=== PATIENT | female | born 1940 | race Caucasian/White ===

== ENCOUNTER 2018-10-01 09:27 | Inpatient (IN) ==
[2018-10-01] MEDS ORDERED: D50W SYRINGE IV ONE (10:00)
[2018-10-01] MEDS ORDERED: NS 1,000 ML IV ONE (10:07)
[2018-10-01 10:29] LABS: BASO# 0.01 X1000 (0.0-0.2); BASO% 0.1 % (0.0-0.8); EOS% 27.4 % (0.0-10.0); HEMATOCRIT 37.7 % (37.0-47.0); IMM GRAN# 0.07 X1000 (0.0-0.04); IMM GRAN% 0.8 % (0.0-0.5); LYMPH# 1.37 X1000 (1.2-3.4); MCH 30.3 PG (27-31); MCHC 31.8 g/dL (33-37); MCV 95.2 FL (81-99); MONO# 0.72 X1000 (0.11-0.59); MONO% 7.9 % (1.7-9.3); NEUT# 4.46 X1000 (1.4-6.5); NEUT% 48.8 % (42.2-75.2); PLT 167 X1000 (130-400); RBC 3.96 XMIL (4.2-5.4); RDW 14.6 % (11.5-14.5); WBC 9.13 X1000 (4.8-10.8)
[2018-10-01 10:37] LABS: ALB/GLOB RATIO 1.5; ALBUMIN 3.7 g/dL (3.5-5.0); CALCIUM 8.5 mg/dL (8.8-10.2); CREATININE 4.2 mg/dL (0.5-0.9); POTASSIUM 5.6 mmol/L (3.5-5.1); TOTAL BILIRUBIN 0.73 mg/dL (0.20-1.00); TOTAL PROTEIN 6.2 g/dL (6.3-8.3)
--- NOTE | 2018-10-01 10:42 | EKG Report ---
Test Performed on : 10/01/2018 09:54:35 AM Test Reason : dizziness Blood Pressure : / mmHG Vent. Rate : 089 BPM Atrial Rate : 089 BPM P-R Int : 150 ms QRS Dur : 072 ms QT Int : 348 ms P-R-T Axes : 019 -13 -05 degrees QTc Int : 423 ms Sinus rhythm. with premature supraventricular complexes. Minimal voltage criteria for LVH, may be normal variant Inferior infarct , age undetermined Cannot rule out Anterior infarct , age undetermined Abnormal ECG When compared with ECG of 24-JUL-2018 09:19, premature supraventricular complexes. are now present Inferior infarct is now present T wave inversion now evident in Inferior leads Unconfirmed Result
[2018-10-01 10:50] LABS: BANDS 6 % (0-1); BASO 2 % (0-1); EOS 18 % (1-10); LYMPHS 10 % (21-51); MONO 8 % (1-9); NRBC 1 % (0-0); SEGS 56 % (42-75)
[2018-10-01] MEDS ORDERED: VELTASSA PO ONE (11:11)
--- NOTE | 2018-10-01 11:20 | Diag Imaging Result Doc PS360 ---
EXAM: CHEST-1 VIEW HISTORY: sob TECHNIQUE: Chest single view COMPARISON: 10/10/2015 FINDINGS: Poor inspiratory effort. No change in the left-sided portacatheter. No pneumothorax. No cardiomegaly. Mild increased interstitial markings in the lung bases. No pleural effusions identified. There is right hilar prominence. IMPRESSION: Mild vascular distention. There may be underlying basilar pneumonia as well. Electronically signed by Philip Blair 10/01/2018 11:18 AM
[2018-10-01 11:31] LABS: ALLEN TEST YES; BE -5.2 mmoll (-3.0-3.0); BLOOD TYPE ARTERIAL; HCO3-(ACT) 20.8 mmoll (20.0-26.0); O2(CT) 14.7 mL/dL (15.0-23.0); O2HB 94.6 % (95.0-99.0); PO2(98.6) 83 mmHg (60-100); SAMPLE BLOOD; SAO2 96.4 % (95.0-100.0); pH(98.6) 7.23 (7.35-7.45)
[2018-10-01 11:33] LABS: MODALITY CANNULA; PCO2(98.6) 54 mmHg (35-45)
--- NOTE | 2018-10-01 13:02 | HISTORY AND PHYSICAL ---
HISTORY OF PRESENT ILLNESS: This is a 78-year-old. Apparently yesterday her said he had a hard time getting her to wake up. She was nauseated and had not eaten much. When she arrived here in the emergency room, her sugar was in the 40s, but also noted renal function had deteriorated with creatinine above 4. She denies chest pain or fever or chills. In general, she had not felt real good with some nausea, and had not eaten or drank much. Not sure about what medication she took. Had noted any abdominal pain or change in bowels other than constipation. No gross hematuria or dysuria. No pleuritic pain or cough. PAST MEDICAL HISTORY: 1. Hypertension. 2. Diabetes mellitus type 2. 3. Gout. 4. Osteoarthritis. 5. Hypothyroidism. 6. She had inguinal left node biopsy back in July of this year. SURGICAL HISTORY: 1. Status post appendectomy. 2. Cholecystectomy and left breast biopsy in the past. SOCIAL HISTORY: She is . Negative for alcohol or tobacco. FAMILY HISTORY: She states contributory to heart disease or lung disease or renal disease. REVIEW OF SYSTEMS: General: She has not noticed any weight gain or loss. No fever or chills. HEENT: No change in visual or hearing acuity. No trouble with swallowing. Respiratory: No increased work of breathing or dyspnea. Cardiovascular: No chest pain or tachy palpitation. GI: Constipation. : She has some frequency of urine. Musculoskeletal/Neurologic: No new focal complaints. She has some back pain. Wears a back brace. Endocrinologic/Hematologic: No significant history. PHYSICAL EXAMINATION: GENERAL: Today in the emergency room, she is awake at the present time and alert, no nausea, no pain. VITAL SIGNS: Temperature 98.1 degrees, pulse 85, respirations 18, blood pressure 136/57, O2 saturation was 95%. Height 5 feet 4 inches, weight 220 pounds. HEENT: Pupils are equal and round. CVP less than 6 cm from right atrium. LUNGS: Clear in all lung carmona. CARDIOVASCULAR EXAM: Regular rhythm and rate without murmur or S3. ABDOMEN: Soft, nontender, nondistended. SKIN: Warm and dry. LABS AND X-RAYS: White count 9130, hematocrit is 37, platelet count 167,000. Sodium 139, potassium 5.6, chloride 100. BUN 46, creatinine 4.2. Blood sugar 43, calcium 8.5. AST was 1000, ALT was 2758. Blood gas with pH 7.23, pCO2 54, PO2 was 83. Her chest x-ray report mild vascular distention; there may be underlying basilar pneumonia, could not be sure. ASSESSMENT AND PLAN: 1. Hypoglycemia. We will give her some sugar. I think this is from her nausea and not eating or drinking. I will put her on sliding scale at home for her blood sugars. She takes glipizide 5 mg twice daily and metformin 1000 mg twice daily; so, we will hold both of these at this time. 2. Acute kidney injury, possibly on top of chronic kidney disease. We will give her some fluids, watch her volume status and see if her renal function does not improve. I hope most of this is prerenal. 3. Hypercholesterolemia. Continue her simvastatin 20 mg a day. 4. History of deep vein thrombosis in the past. She takes Coumadin 1 mg a day. We will check a pro time. 5. Osteoarthritis. She is on diclofenac, aware, 75 mg twice daily. 6. Elevated transaminases. We will follow these. I will check a hepatitis profile. 7. Dry eyes. She takes Restasis; we will continue that. 8. Peripheral neuropathy, which I suspect is from diabetes since she is on some Neurontin, and she takes Elavil as well. 9. History of gouty arthritis. She is on allopurinol 300 mg daily. We will recheck her thyroid and uric acid. cc: Zach Smith MD
[2018-10-01 13:47] LABS: URINE SOURCE CATH
[2018-10-01] MEDS ORDERED: TYLENOL PO PRN (14:16)
[2018-10-01 14:17] LABS: BILIRUBIN URINE NEGATIVE (NEGATIVE); BLOOD URINE MODERATE (NEGATIVE); COLOR ORANGE; GLUCOSE URINE NEGATIVE (NEGATIVE); KETONE URINE NEGATIVE (NEGATIVE); LEUKOCYTES URINE LARGE (NEGATIVE); NITRITE URINE NEGATIVE (NEGATIVE); PROTEIN URINE 300 mg/dL (NEGATIVE); SP GRAVITY URINE 1.013; TURBIDITY URINE TURBID (CLEAR); UR EPITHELIAL CELLS >10 /HPF (<10); URINE BACTERIA 4+ /HPF; URINE RBC TNTC /HPF (<10); URINE WBC TNTC /HPF (<10); UROBILINOGEN URINE NORMAL (NORMAL)
[2018-10-01 14:28] LABS: URINE CASTS GRANULAR PRESENT; URINE CRYSTALS NONE SEEN; URINE SMALL ROUND CELLS NONE SEEN; URINE YEAST NONE SEEN
--- NOTE | 2018-10-01 15:01 | EKG Report ---
Test Performed on : 10/01/2018 2:23:02 PM Test Reason : chest pain Blood Pressure : / mmHG Vent. Rate : 083 BPM Atrial Rate : 083 BPM P-R Int : 154 ms QRS Dur : 080 ms QT Int : 344 ms P-R-T Axes : 019 -11 009 degrees QTc Int : 404 ms Normal sinus rhythm. Possible Anterior infarct (cited on or before 01-OCT-2018) Abnormal ECG When compared with ECG of 01-OCT-2018 09:54, (Unconfirmed) premature supraventricular complexes. are no longer present Confirmed by Anirudh PHILLIPS, Mike Ellison ([id number]) on 10/02/2018 8:21:07 AM
[2018-10-01 15:06] LABS: INR 0.99; PROTIME 13.9 Seconds (11.0-16.0)
[2018-10-01] MEDS: NS 1,000 ML IV SCH (15:10)
[2018-10-01] MEDS: REQUIP PO SCH ×2 (16:57→21:00)
[2018-10-01] MEDS: PERCOCET-10 PO SCH ×3 (16:57→17:01)
[2018-10-01 19:44] LABS: CALCIUM 7.8 mg/dL (8.8-10.2); CREATININE 4.3 mg/dL (0.5-0.9); POTASSIUM 5.9 mmol/L (3.5-5.1)
[2018-10-01] MEDS: DITROPAN XL PO SCH (20:56)
[2018-10-01] MEDS: ELAVIL PO SCH (20:56)
[2018-10-01] MEDS: NEURONTIN PO SCH (20:57)
[2018-10-02] MEDS: RESTASIS 0.05% OPH DROPS BOTH EYES SCH ×3 (05:50→21:40)
[2018-10-02] MEDS: NS 1,000 ML IV SCH ×2 (06:30→06:31)
[2018-10-02] MEDS: D50W SYRINGE IV ONE (06:30)
[2018-10-02 07:22] LABS: BASO# 0.01 X1000 (0.0-0.2); BASO% 0.1 % (0.0-0.8); EOS# 1.53 X1000 (0.0-0.7); EOS% 18.6 % (0.0-10.0); HEMATOCRIT 34.4 % (37.0-47.0); HEMOGLOBIN 10.6 g/dL (12.0-16.0); IMM GRAN# 0.05 X1000 (0.0-0.04); IMM GRAN% 0.6 % (0.0-0.5); LYMPH# 0.46 X1000 (1.2-3.4); LYMPH% 5.6 % (20.5-51.1); MCHC 30.8 g/dL (33-37); MCV 97.5 FL (81-99); MONO# 0.59 X1000 (0.11-0.59); MONO% 7.2 % (1.7-9.3); MPV 10.5 FL (7.4-10.4); NEUT# 5.58 X1000 (1.4-6.5); NEUT% 67.9 % (42.2-75.2); PLT 141 X1000 (130-400); RBC 3.53 XMIL (4.2-5.4); RDW 15.1 % (11.5-14.5); WBC 8.22 X1000 (4.8-10.8)
[2018-10-02 07:31] LABS: INR 0.93; PROTIME 13.2 Seconds (11.0-16.0)
[2018-10-02 07:58] LABS: ALB/GLOB RATIO 1.5; ALBUMIN 3.1 g/dL (3.5-5.0); CALCIUM 7.5 mg/dL (8.8-10.2); CREATININE 5.3 mg/dL (0.5-0.9); MAGNESIUM 1.6 mg/dL (1.5-2.7); TOTAL BILIRUBIN 0.39 mg/dL (0.20-1.00); TOTAL PROTEIN 5.2 g/dL (6.3-8.3)
[2018-10-02 08:02] LABS: POTASSIUM 5.9 mmol/L (3.5-5.1)
--- NOTE | 2018-10-02 08:22 | Diag Imaging Result Doc PS360 ---
EXAM: CHEST-2 VIEWS HISTORY: pulmonary venous htn TECHNIQUE: Chest two views 10/01/2018 COMPARISON: None. FINDINGS: Poor inspiratory effort. Heart is borderline mildly prominent. There is mild right hilar prominence. There are small pleural effusions. No change in the left-sided portacatheter. Prominence IMPRESSION: Small pleural effusions with right hilar prominence. Hilar prominence could be due to the vasculature or adenopathy. Electronically signed by Philip Blair 10/02/2018 8:20 AM
[2018-10-02 09:00] LABS: T4 3.76 ug/dL (4.60-12.00); TSH 0.94 uIUmL (0.27-4.20)
[2018-10-02] MEDS ORDERED: ZYLOPRIM PO SCH (09:00)
[2018-10-02] MEDS ORDERED: COUMADIN PO SCH (09:00)
[2018-10-02] MEDS: PERCOCET-10 PO SCH ×3 (09:17→23:25)
[2018-10-02] MEDS: NORVASC PO SCH (09:17)
[2018-10-02] MEDS: SYNTHROID PO SCH (09:18)
[2018-10-02] MEDS: REQUIP PO SCH ×2 (09:18→21:39)
[2018-10-02] MEDS: DITROPAN XL PO SCH ×2 (09:18→21:39)
[2018-10-02] MEDS: NEURONTIN PO SCH (09:19)
--- NOTE | 2018-10-02 11:31 | ECHO REPORT ---
ORDER DATE: 10/01/2018 INDICATION: Hypoglycemia. Acute kidney injury. Diabetes. Hypertension. FINDINGS: 1. Right atrium is mildly enlarged at 4.1 cm. 2. Mild tricuspid regurgitation. The RV systolic pressure is 76 suggesting pulmonary hypertension. 3. Normal RV size and systolic function. 4. Trace pulmonic insufficiency. 5. Mild left atrial enlargement with a dimension of 4.3 cm. 6. No mitral valve prolapse. Mild mitral regurgitation. No evidence of mitral stenosis. 7. Normal LV size, end-diastolic dimension of 4.7. Mild left ventricular hypertrophy with a posterior and interventricular septal wall thickness 1.2 cm each. Normal LV systolic function. Estimated EF of 65%. 8. Aortic valve is calcified with restriction in motion consistent with moderate aortic stenosis. The peak gradient is 51, mean of 30, valve area by continuity equation is 1.2 cm2. There is mild aortic insufficiency. 9. Aorta appears normal in visualized segments. 10. No pericardial effusion seen. cc: MD Zach New MD
[2018-10-02] MEDS ORDERED: NS 1,000 ML IV SCH (13:24)
--- NOTE | 2018-10-02 13:43 | PROGRESS NOTE ---
DATE: 10/02/2018 SUBJECTIVE: Ms. Oakes feels better but she had a rough night. Blood sugars still going to run a little low. She remains afebrile. Her daughter was there at the bedside. OBJECTIVE: Vital signs: She is alert and oriented x3, remains afebrile, temperature 97.3 degrees, pulse 68, respirations 16, blood pressure 125/54. HEENT: Pupils are equal round lungs are clear in all lung carmona. Cardiovascular: Regular rhythm and rate without murmur or S3. Abdomen: Soft Skin: Warm and dry urine. Genitourinary: Output was 1700 mL. IMAGING: Chest x-ray this morning, small pleural effusions, right hilar prominence, hilar prominence could be due to vasculature adenopathy echocardiogram with Doppler. Right atrium mildly enlarged. Mild tricuspid regurgitation. RV pressure around 76 mmHg suggesting pulmonary hypertension. Normal RV size and systolic function. Trace pulmonic insufficiency. Mild left atrial enlargement dimension is 4.3 cm. No mitral prolapse. Mild mitral regurgitation. Normal LV size. Dimensions 4.7 cm, mild left ventricular hypertrophy with posterior and intraventricular septal wall thickness. Normal LV function. Estimated ejection fraction 65%. Aortic valve was calcified. There is mild aortic insufficiency. There is moderate aortic stenosis. Aorta appears normal in visualized segments. No pericardial effusion. Her creatinine is 5.3, which is gone up. Urine output has gone down. I am going to ask Dr. Monsalve to get involved and try and increase her fluid. She should be able to handle fluid. Fine. ASSESSMENT AND PLAN: 1. Hypoglycemia. Had stopped the glyburide and metformin. Blood sugars seem to be coming up. 2. Acute kidney injuries. May be acute on chronic, but hopefully most of this is prerenal. I will continue to follow electrolytes and creatinine. We will go up on the normal saline, give her 125 mL an hour. 3. Elevation in transaminases. AST 276 and ALT is 17 and 13, alkaline phosphatase is 264. I will get an ultrasound of her abdomen. 4. She has been treated with lymphoma. Originally I think had in 2004 and then 2006 relapse. I will ask Dr. Maloney to help follow. Concerned about elevation of transaminase. Concerned about her renal function. We will get an ultrasound of the abdomen and ultrasound of the kidneys and collection system. 5. Appears to have some pulmonary hypertension and maybe moderate aortic stenosis, but good left ventricular function. cc: Zach Smith MD
--- NOTE | 2018-10-02 15:18 | Diag Imaging Result Doc PS360 ---
EXAM: US ABDOMEN-COMPLETE INDICATION: look at liver and kidneys COMPARISON: None. FINDINGS: There has been a prior cholecystectomy. The common bile duct is dilated measuring up to 9 mm in diameter. This is assumed to be due to postcholecystectomy status and the age of the patient. The liver appears grossly normal in size and echotexture. No discrete hepatic mass is identified. Portal venous flow is hepatopetal. The pancreas is obscured by bowel gas. The aorta and IVC are grossly unremarkable. The spleen is obscured. There is a small 1.4 cm simple appearing left renal cyst. The kidneys are normal in echotexture, otherwise. No solid renal mass or hydronephrosis is identified. The right kidney measures 13.4 cm and the left kidney measures 11.9 cm in the greatest longitudinal axes. Both renal cortices measure up to 1.2 cm in thickness. Urinary bladder is not identified and is probably completely nondistended. IMPRESSION: 1.Somewhat limited study due to bowel gas. 2.Small left renal cyst. Unremarkable kidneys, otherwise. 3.The liver is grossly unremarkable. Electronically signed by Seth Hernandez 10/02/2018 3:16 PM
[2018-10-02] MEDS ORDERED: D50W SYRINGE IV ONE (15:54)
[2018-10-02] MEDS: D5 NS 1,000 ML IV SCH (16:10)
--- NOTE | 2018-10-02 18:48 | NEPHROLOGY CONSULTATION ---
DATE: 10/02/2018 REASON FOR CONSULTATION: Acute kidney injury. HISTORY OF PRESENT ILLNESS: Ms. Oakes is a 78-year-old white female with a history of diabetes, hypertension, non-Hodgkin's lymphoma, osteoarthritis, and hypothyroidism. She has been treated by Dr. Ginna Maloney, but she is not aware of the regimen she has received for her non-Hodgkin's lymphoma. She does have a port in the left chest. She was in her usual state of health until this weekend when she began having intense nausea and vomiting. No diarrhea, no chills, fever, sweats, night sweats. She does have a minor cough that is causing some pain in the midsternum, but no sputum production. No chills, fever, sweats, night sweats, etc. She did continue to take her home medications through the weekend. On Sunday morning, she was lethargic and difficult to arouse and essentially slept all day long. She did not take any of her medicines that day. On Sunday morning, she remained abnormal and so her packaged her up and brought her to the emergency room. Her initial vital signs found a blood pressure of 147/71, heart rate 91, respirations 18. She was evaluated and found to have acute kidney injury with creatinine of 4.2, BUN 46, potassium of 5.6, and anion gap of 23. She had evidence of acute liver injury with AST 1088 and ALT 2758. She was admitted to the hospital and her outpatient medications were pared down. She is continuing to receive her gabapentin at 800 mg b.i.d. as well as her Norvasc and amitriptyline, allopurinol, levothyroxine, methocarbamol, oxybutynin, oxycodone, ropinirole, and warfarin. Her other medications were withheld, including her metformin, simvastatin, glipizide, enalapril, diclofenac, and allopurinol. Despite these changes and aggressive IV fluid resuscitation, she has had minimal urine output and it has been dark in color. She has had ongoing problems with hypoglycemia, and she is eating crackers and peanut butter. No further vomiting. She has not developed shortness of breath. She has been too weak to stand up. PAST MEDICAL HISTORY: As above. HOME MEDICATIONS: As listed above. ALLERGIES: None. SOCIAL HISTORY: She is and lives with her . No alcohol or tobacco. FAMILY HISTORY: Otherwise noncontributory. REVIEW OF SYSTEMS: Otherwise noncontributory. Nobody else is sick at home. OBJECTIVE: Vital Signs: Blood pressure 156/76, heart rate 77, respirations 16, afebrile. General: No acute distress. Skin: Warm and dry. Conjunctivae are pink. Pupils are equal. Oropharynx is clear. Tongue is somewhat smooth. Dentition normal. Neck: Supple. Trachea is midline. Neck veins are not visible. No obvious hepatojugular reflux. Heart: Regular with a systolic murmur at the right upper sternal border, a crescendo/decrescendo course, and radiates minimally to the carotids. Lungs: Equal breath sounds. No crackles or wheezes. Abdomen: Obese soft, nontender. Bowel sounds present. Extremities: Trace edema. No clubbing or cyanosis. Neurologic: Nonfocal except for generalized weakness. IMPRESSION AND PLAN: Acute kidney injury. Acute tubular necrosis is statistically most likely. She has been treated appropriately with intravenous fluids and her medications have been appropriately adjusted. She does have modest hyperkalemia and metabolic acidosis on presentation, but these are not at a level that require treatment at this time. BUN was 52 this morning. We will continue her intravenous fluids, and recheck her urine as well as urine electrolytes, urine protein, etc., repeat abdominal imaging with CT abdomen and pelvis without contrast given her history of lymphoma. I counseled the patient and family of the likely cause of her acute kidney injury (prerenal azotemia with overlying acute tubular necrosis). Overall, likely a good prognosis, though some significant risk for requiring dialysis. We will re-evaluate on a daily basis. cc: MD Zach Bergeron MD
[2018-10-02] MEDS ORDERED: NEURONTIN PO SCH ×2 (21:00)
[2018-10-02] MEDS: ELAVIL PO SCH (21:39)
[2018-10-02] MEDS: ZOFRAN IV PRN (21:41)
--- NOTE | 2018-10-02 21:44 | Diag Imaging Result Doc PS360 ---
EXAM: CT ABDOMEN/PELVIS W/O CONTRAST - 10/02/2018 HISTORY: decreased renal function. History of NHL TECHNIQUE: CT abdomen/pelvis without contrast. No contrast administered per request the referring provider, apparently due to decreased renal function. COMPARISON: Limited images from CT biopsy of abdomen dated 02/02/2015 FINDINGS: There is infiltrate or atelectasis at the posterior left lung base. There is a small left pleural effusion. There is an apparent 13 x 9 mm stone at the distal left renal pelvis. This appears grossly stable compared to prior. There is no substantial hydronephrosis. There is apparent bilateral perinephric scarring. There is retroperitoneal adenopathy. This appears decreased compared to that which was present at the time of the prior biopsy. There are atherosclerotic calcifications noted. There are lumbar spine degenerative changes noted. There are no substantial abnormalities of the liver, spleen (other than calcified granulomas from old granulomatous disease) adrenal glands, or pancreas identified. The gallbladder surgically absent. There are some distention of the stomach and duodenum. The remainder of the small bowel does not appear substantially distended. There is a moderate amount retained fecal debris in the colon suggesting constipation. There is diverticulosis at the sigmoid colon, which is noted to be tortuous. There is no indication of diverticulitis. There is no free air, substantial free fluid, or abscess identified. IMPRESSION: Infiltrate or atelectasis at posterior left lung base. Small left pleural effusion. Apparent chronic 12 x 9 mm stone in distal left renal pelvis. No substantial hydronephrosis. Apparent bilateral perinephric scarring. Retroperitoneal adenopathy, which is apparently decreased compared to 02/02/2015 CT biopsy. There are atherosclerotic calcifications in lumbar spine degenerative changes noted. Some distention of stomach and duodenum. Constipation. Uncomplicated diverticulosis at sigmoid colon. This exam was performed using automated exposure control, adjustment of mA or kV according to patient size, and/or use of iterative reconstruction technique. Electronically signed by Ravi Rosas 10/02/2018 9:41 PM
[2018-10-03 00:35] LABS: URINE SOURCE CLEAN CATCH
[2018-10-03 00:48] LABS: BILIRUBIN URINE NEGATIVE (NEGATIVE); BLOOD URINE MODERATE (NEGATIVE); COLOR YELLOW; GLUCOSE URINE NEGATIVE (NEGATIVE); KETONE URINE NEGATIVE (NEGATIVE); LEUKOCYTES URINE LARGE (NEGATIVE); NITRITE URINE NEGATIVE (NEGATIVE); PROTEIN URINE 200 mg/dL (NEGATIVE); SP GRAVITY URINE 1.003; TURBIDITY URINE TURBID (CLEAR); UR EPITHELIAL CELLS >10 /HPF (<10); URINE BACTERIA 3+ /HPF; URINE RBC TNTC /HPF (<10); URINE WBC TNTC /HPF (<10); UROBILINOGEN URINE NORMAL (NORMAL)
[2018-10-03 01:02] LABS: UR PROT RANDOM 151.3 mg/dL
[2018-10-03] MEDS: D5 NS 1,000 ML IV SCH (01:21)
[2018-10-03] MEDS ORDERED: D50W SYRINGE IV ONE ×3 (01:43→07:01)
[2018-10-03] MEDS: D50W SYRINGE IV ONE (02:04)
[2018-10-03] MEDS ORDERED: DUONEB (A & A) INH ONE (03:37)
[2018-10-03] MEDS ORDERED: D5 NS 1,000 ML IV SCH (03:44)
[2018-10-03] MEDS: LEVAQUIN 250 MG/D5W 250 MG/50 ML IVPB IV SCH (04:04)
[2018-10-03 04:57] LABS: MCH 30.3 PG (27-31); MCHC 31.4 g/dL (33-37); MCV 96.4 FL (81-99); MPV 11.4 FL (7.4-10.4); RBC 3.63 XMIL (4.2-5.4); RDW 15.1 % (11.5-14.5); WBC 12.4 X1000 (4.8-10.8)
[2018-10-03 05:23] LABS: ALBUMIN 3.4 g/dL (3.5-5.0); CALCIUM 7.1 mg/dL (8.8-10.2); PHOSPHORUS 8.2 mg/dL (2.7-4.5)
[2018-10-03 05:24] LABS: POTASSIUM 6.4 mmol/L (3.5-5.1)
[2018-10-03 05:56] LABS: URINE SOURCE CLEAN CATCH
[2018-10-03 06:07] LABS: BILIRUBIN URINE NEGATIVE (NEGATIVE); BLOOD URINE MODERATE (NEGATIVE); COLOR YELLOW; GLUCOSE URINE NEGATIVE (NEGATIVE); KETONE URINE NEGATIVE (NEGATIVE); LEUKOCYTES URINE LARGE (NEGATIVE); NITRITE URINE NEGATIVE (NEGATIVE); PH URINE 5.5; PROTEIN URINE 100 mg/dL (NEGATIVE); SP GRAVITY URINE 1.001; TURBIDITY URINE HAZY (CLEAR); UROBILINOGEN URINE NORMAL (NORMAL)
[2018-10-03 06:09] LABS: UR EPITHELIAL CELLS <10 /HPF (<10); URINE BACTERIA 3+ /HPF; URINE RBC <10 /HPF (<10); URINE WBC TNTC /HPF (<10)
[2018-10-03] MEDS: D10W 1,000 ML IV SCH (06:37)
[2018-10-03] MEDS: LOKELMA POWDER PACKET PO SCH ×4 (06:44→19:30)
--- NOTE | 2018-10-03 08:04 | EKG Report ---
Test Performed on : 10/03/2018 06:43:28 AM Test Reason : hyperkalemia Blood Pressure : / mmHG Vent. Rate : 082 BPM Atrial Rate : 082 BPM P-R Int : 156 ms QRS Dur : 080 ms QT Int : 350 ms P-R-T Axes : 024 -07 015 degrees QTc Int : 408 ms Normal sinus rhythm. Normal ECG When compared with ECG of 01-OCT-2018 14:23, No significant change was found Confirmed by Anirudh PHILLIPS, Mike Ellison ([id number]) on 10/04/2018 9:05:21 AM
[2018-10-03] MEDS ORDERED: XYLOCAINE 1%/EPI 1:100,000 ONE (09:53)
[2018-10-03] MEDS ORDERED: NS 250 ML ONE (09:53)
[2018-10-03] MEDS ORDERED: DIPRIVAN 1% ONE (09:59)
[2018-10-03] MEDS ORDERED: NS 2,000 ML MISC PRN (10:03)
[2018-10-03] MEDS ORDERED: XYLOCAINE-MPF 2% ONE (10:13)
[2018-10-03] MEDS ORDERED: ROBINUL ONE (10:13)
[2018-10-03] MEDS ORDERED: VERSED ONE (10:13)
[2018-10-03] MEDS ORDERED: D50W SYRINGE ONE (10:21)
--- NOTE | 2018-10-03 11:08 | PROGRESS NOTE ---
DATE: 10/03/2018 SUBJECTIVE: She had a rough night last night. Sugars continue to dip down, unresponsive or very lethargic. We gave her several amps of D50. OBJECTIVE: Her temperature is 97.7 degrees, pulse 90, respirations 18, blood pressure 112/36. Pupils are equal and round. Lungs are clear in all lung carmona. Cardiovascular: Regular rhythm and rate without murmur or S3. Abdomen is soft. Skin is warm and dry. LABORATORY DATA: From this morning, white count 12,400, hematocrit is 35, platelet count 158,000. Blood sugars have been 48, 76, 70, 55, 106. ASSESSMENT AND PLAN: 1. Acute kidney injury. Acute tubular necrosis is statistically most likely. She has been treated appropriately with intravenous fluids, but her medications appropriately adjusted. She does have modest hyperkalemia and metabolic acidosis, not at the level to require treatment. BUN is 52. 2. Hypoglycemia. I suspect this is liver dysfunction. She has elevated transaminases. I am not really sure I know what is going on. We will check a Tylenol level, stopped all Tylenol. I will ask Gastroenterology to help. 3. History of lymphoma. Dr. Maloney is following. She has had some chemotherapy in the past for this. I do not know if this has any bearing at the present time on her renal function. 4. Diabetes mellitus, type 2, with hyperglycemia. 5. We have her on an empiric antibiotic. I do not think we have any evidence of true infection. 6. Getting Norvasc 5 mg a day. We will stop all of her Tylenol. 7. Her Coumadin level, her pro-time is only 13.2. I am going to stop her Coumadin. 8. Her urine shows [id number]-count white blood cells so we will keep her on antibiotic. Dr. Casey has started on Levaquin. 9. I am going to move her to [facility] and ask Gastroenterology to help. cc: Zach Smith MD
--- NOTE | 2018-10-03 11:36 | Diag Imaging Result Doc PS360 ---
EXAM: CHEST-PORTABLE HISTORY: Pt in RR TECHNIQUE: Chest single view COMPARISON: 10/02/2018 FINDINGS: Poor inspiratory effort. Interval placement of a right jugular line. No postprocedural pneumothorax. The tip is near the junction of superior vena cava and right atrium. Mild central vascular prominence. There is a small left pleural effusion. No change in the left-sided portacatheter. IMPRESSION: No postprocedural pneumothorax. Electronically signed by Philip Blair 10/03/2018 11:33 AM
--- NOTE | 2018-10-03 12:48 | OPERATIVE NOTE ---
PROCEDURE DATE: 10/03/2018 PREOPERATIVE NOTE: History of non-Hodgkin's lymphoma and now with chronic renal failure. PROCEDURE: Right internal jugular tunnel Vas-Cath for dialysis. DESCRIPTION OF PROCEDURE: The patient was brought to the operating room after satisfactory IV and MAC anesthesia. Her right neck and chest were prepped and draped in the appropriate manner. The internal jugular vein was isolated with the venous Doppler. An area transversely across the base of the neck between the bellies of the digastric muscles was infiltrated with Xylocaine and Marcaine with epinephrine. A transverse incision was made down through the fascia. The right internal jugular vein was cannulated. A guidewire was introduced to the right atrial area of the heart. There was no pneumothorax. Subsequent to this, an area medial to the nipple was likewise infiltrated. An incision was made there. The tunneled catheter was threaded up through this area exiting at the internal jugular incision. It was subsequently with incremental dilations was threaded down to the superior vena cava right atrial junction. It was flushed easily and aspirated easily. [Catheter*] were placed. The upper incision underwent subcutaneous closure of 3-0 Vicryl, subcuticular 4-0 Vicryl. Steri-Strips, Telfa, and OpSite were applied here. Exit site was anchored with 0 silk. Sterile dressing was applied at this area as well. The patient was subsequently awakened in the operating room, and transferred briefly to recovery prior to going to the dialysis. Chest x-ray reveals good position of the catheter with no pneumothorax. ESTIMATED BLOOD LOSS: 30-40 mL. cc: MD Zach Bass MD MTDD
[2018-10-03 12:50] LABS: HEPATITIS PROFILE ACUTE SEE COMMENTS
--- NOTE | 2018-10-03 14:03 | PROVIDER DOCUMENTATION ---
This chart was entered by Concha Oshea Scribe, acting as scribe for Noé Michele MD. HPI-General Adult - General Chief Complaint: Dizziness Stated Complaint: DIZZINESS,CANT REMEMBER ANYTHING Time Seen by Provider: 10/01/18 10:00 Source: patient Allergies/Adverse Reactions: Patient Allergies Allergy/AdvReac Type Severity Reaction Status Date / Time No Known Allergies Allergy Verified 10/01/18 09:46 Home Medications: Home Medication List Medication Instructions Recorded Confirmed Last Taken Type Allopurinol 300 mg PO DAILY 01/13/15 07/26/18 07/26/18 04:00 History Amitriptyline [Elavil] 50 mg PO HS 01/13/15 07/26/18 07/25/18 21:00 History Diclofenac Sodium 75 mg PO BID 01/13/15 07/26/18 07/26/18 04:00 History Enalapril Maleate 20 mg PO BID 01/13/15 07/26/18 07/25/18 21:00 History Gabapentin 800 mg PO BID 01/13/15 07/26/18 07/25/18 21:00 History Glipizide 5 mg PO BID 01/13/15 07/26/18 07/25/18 21:00 History Levothyroxine [Synthroid] 150 microgm PO DAILY 01/13/15 07/26/18 07/24/18 09:00 History Metformin HCl 1,000 mg PO BID 01/13/15 07/26/18 07/24/18 21:00 History Methocarbamol 750 mg PO PRN PRN 01/13/15 07/26/18 04/16/15 07:00 History Oxybutynin E.r. [Ditropan Xl] 5 mg PO BID 01/13/15 07/26/18 04/16/15 07:00 History Oxycodone HCl/Acetaminophen 1 each PO TID 01/13/15 07/26/18 07/25/18 21:00 History [Percocet 10-325 mg Tablet] Ropinirole [Requip] 1 mg PO BID 01/13/15 07/26/18 07/26/18 04:00 History Simvastatin 20 mg PO DAILY 01/13/15 07/26/18 07/25/18 21:00 History Warfarin Sodium [Coumadin] 1 mg PO DAILY #100 tablet 01/29/15 07/26/18 07/21/18 Rx Amlodipine [Norvasc] 5 mg PO QAM 07/24/18 07/26/18 07/26/18 04:00 History Cyclosporine 0.05% Oph Drops 1 each BOTH EYES BID 07/24/18 07/26/18 07/25/18 21:00 History [Restasis 0.05% Oph Drops] Furosemide 40 mg PO PRN PRN 07/24/18 07/26/18 07/25/18 21:00 History Hydrocodone/Acetaminophen [Bliss 1 each PO Q6H PRN PRN #20 tablet 07/26/18 Unknown Rx 10-325 Tablet] Ondansetron HCl [Zofran] 4 mg PO Q4H PRN PRN #10 tablet 07/26/18 Unknown Rx - History of Present Illness -Gen Adult Nature of Presenting Problems: Patient is a 78 year old female who presents with dizziness that started this morning. Patient reports having nausea and vomiting 3 days ago. States symptoms resolved after taking a zofran the next day. Patient is a diabetic and reports she has not checked her blood sugar in 3 days and has not ate in 2 days. Reports taking her daily medications yesterday but not today. Patient's FSBS is 43 in ED. Location of Pain/Injury: reports: none Pain Radiation: reports: no radiation Quality of Pain: reports: none Severity: reports: mild Onset/Duration: reports: this morning Timing: reports: still present Context/Activities at Onset: reports: light activity Modifying Factors: improves with: nothing Associated Symptoms: reports: dizziness, nausea, vomiting Similar Symptoms Previously?: Yes Recently seen or treated by another doctor?: No Review of Systems - Adult - REVIEW OF SYSTEMS - ADULT Constitutional: reports: no symptoms reported. denies: chills, fever, fatique Eyes: reports: no symptoms reported Ears, Nose, Mouth & Throat: reports: no symptoms reported Cardiovascular: reports: no symptoms reported Respiratory: reports: no symptoms reported Gastrointestinal: reports: see HPI, nausea, vomiting. denies: abdominal pain, diarrhea Genitourinary: reports: no symptoms reported Musculoskeletal: reports: no symptoms reported Integumentary: reports: no symptoms reported Neurological: reports: see HPI, dizziness/vertigo (dizziness). denies: headache/migraines, numbness, seizure, syncope Psychiatric: reports: no symptoms reported Endocrine: reports: no symptoms reported Hematologic/Lymphatic: reports: no symptoms reported Allergic/Immunologic: reports: no symptoms reported All Other Systems: Reviewed and Negative Past History - Adult - PAST MEDICAL HISTORY-ADULT Review of Records: reports: Nursing Assessment Review, Medications Reviewed, Social history reviewed & non-contributory. Major Childhood Illnesses: reports: denies history Cardiovascular: reports: HTN Respiratory: reports: denies history Gastrointestinal: reports: denies history Obstetrical/Gynecological: reports: denies history Genitourinary: reports: denies history Musculoskeletal: reports: denies history Neurological: reports: TIA Psychiatric: reports: denies history Endocrine/Immune: reports: Diabetes, thyroid disorder Other Conditions: reports: denies history - PRIOR SURGERIES/PROCEDURES Surgical/Procedure History: reports: appendectomy, cholecystectomy, joint replacement - IMMUNIZATION STATUS Childhood Immunizations: See Nurse Assessment Flu Vaccine: See Nurse Assessment - FAMILY HISTORY Family History: reviewed, not pertinent - SOCIAL HISTORY Smoking: denies Substance Use: denies Physical Exam-General - PHYSICAL EXAM-ADULT Initial Vital Signs Reviewed: Yes - CONSTITUTIONAL General Appearance: alert, no apparent distress. negative: lethargic, slow to respond - HEAD, EARS, NOSE, MOUTH & THROAT HENMT: other (mild dry mucous membranes). negative: angioedema, hearing deficit - RESPIRATORY Respiratory: chest non-tender, lungs clear, normal breath sounds. negative: crackles, stridor - CARDIOVASCULAR Cardiovascular: regular rate, rhythm, systolic murmur. negative: tachycardia - GASTROINTESTINAL (ABDOMEN) Abdominal Exam: normal bowel sounds, non tender, soft. negative: rigid, rebound - MUSCULOSKELETAL Extremity: non-tender, normal inspection. negative: deformity, erythema - SKIN Integumentary: normal color, normal turgor, warm/dry. negative: cyanosis, ecchymosis, erythema, jaundice - NEUROLOGIC Neurologic: grossly normal. negative: aphasia, facial droop - PSYCHIATRIC Psych/Mental Status: normal mood/affect, oriented x 3. negative: anxious Progress - PLAN OF CARE/RESULTS Progress/Plan/Lab Results: Vital Signs - 8 hr 10/01/18 09:32 Temperature 98.3 F Pulse Rate 91 H Respiratory Rate 18 Blood Pressure 147/71 O2 Sat by Pulse Oximetry 99 Laboratory Results - last 24 hr 10/01/18 09:53 POC Glucose 43 L D Orders Category Date Time Status Diabetic Diet Diet 10/01/18 09:59 Active Dextrose 50% Syringe [D50w Syringe] Med 10/01/18 10:00 Discontinued 50 ml IV NOW ONE Ns 1000 ml IV Bolus X1 Med 10/01/18 10:07 Ordered 0.9% Sodium Chloride Inj [Ns] 1,000 ml IV 999 mls/hr EKG [EKG] Stat Ther 10/01/18 09:50 Ordered Result Diagrams: 10/01/18 10:01 10/01/18 10:01 - EKG 1 Time of EKG reading by physician:: 09:54 EKG Read and Signed by:: Noé Michele EKG Interpretation (*Must complete 3 of following elements*): Abnormal (cannot rule out anterior infarct, age undetermined) Rate: 89 Rhythm: sinus rhythm with premature supraventricular complexes QRS: LVH WV Interval: normal Comments: inferior infarct, age undetermined; - XRAY 1 XRAY Study: Chest Impression: See EMR Report ( EXAM: CHEST-1 VIEW HISTORY: sob TECHNIQUE: Chest single view COMPARISON: 10/10/2015 FINDINGS: Poor inspiratory effort. No change in the left-sided portacatheter. No pneumothorax. No cardiomegaly. Mild increased interstitial markings in the lung bases. No pleural effusions identified. There is right hilar prominence. IMPRESSION: Mild vascular distention. There may be underlying basilar pneumonia as well. Electronically signed by Philip Blair 10/01/2018 11:18 AM 10/01/18 1118 Interpreting Physician: Philip Blair MD Dictated Date/Time: 10/01/18 1117 cc: Noé Michele MD; Zach Smith MD) - CONSULTS/PCP/HOSPITALIST Notification #1 *Consult/PCP/Hospitalist*: Dr. Smith Time Discussed: 11:00 Reason/Comments: Dr. Michele consulted with Dr. Smith about patient. Consult Disposition: Will see in ED Departure - Departure Date of Disposition Decision: 10/01/18 Time of Disposition Decision: 11:04 DIAGNOSIS: ARF (acute renal failure), Dehydration, Hyperkalemia, Hypoglycemia, Hypoxia, Elevated LFTs Disposition: ADMITTED INPATIENT 09 Certified Medical Emergency: Emergent Condition: Fair Referrals and Follow-Ups: Zach Smith MD [Primary Care Provider] - - Critical Care Note This patient required my direct & personal management of CC.: Yes Total Time (mins): 35 Critical Care Statement: This patient required my direct personal management to treat or rule out processes, the absence of which, could potentiallly result in sudden, clinically significant life or limb threatening deterioration. Attestation - Physician/ WAYNE Attestation Patient care was provided by Advanced Practice Provider:: No The physician spent face to face time with patient:: Yes Advanced Practice Provider documentation review:: Supervising physician onsite and consulted in the evaluation and care of this patient. The physician did have a face to face encounter with the patient. This chart was documented by the indicated scribe, (Concha Oshea Scribe) and accurately reflects the services I performed and decisions made by me, Noé Michele MD, as attested by the provider's signature.
[2018-10-03 14:54] LABS: ALBUMIN 2.8 g/dL (3.5-5.0); CALCIUM 7.1 mg/dL (8.8-10.2); CREATININE 3.3 mg/dL (0.5-0.9); PHOSPHORUS 3.8 mg/dL (2.7-4.5); POTASSIUM 4.7 mmol/L (3.5-5.1)
[2018-10-03] MEDS: DITROPAN XL PO SCH ×2 (15:42→21:16)
[2018-10-03] MEDS: SYNTHROID PO SCH (15:43)
[2018-10-03] MEDS: NORVASC PO SCH (15:50)
[2018-10-03] MEDS: RESTASIS 0.05% OPH DROPS BOTH EYES SCH ×2 (15:50→21:23)
[2018-10-03] MEDS: REQUIP PO SCH ×2 (15:51→21:16)
--- NOTE | 2018-10-03 16:05 | NEPHROLOGY PROGRESS NOTE ---
DATE: 10/03/2018 SUBJECTIVE: She is somnolent this morning but arousable. No chest pain or palpitations. OBJECTIVE: Vital Signs: Blood pressure 118/59, heart rate 91, respirations 16, afebrile. General: Acute distress. Skin: Warm and dry. Neck: Neck veins are not distended. Heart: Regular. No rubs. Lungs: Equal. No crackles. Abdomen: Soft, nontender. Bowel sounds present. Extremities: No edema, clubbing, or cyanosis. IMPRESSION: Altered mental status. She has been dealing with hypoglycemia overnight but I expect her uremia is significant as well. She also has significant hyperkalemia and moderate metabolic acidosis. I have discussed the case with Dr. Baez and he will place dialysis access and we will treat her today using a 2 potassium bath for 3.5 hours, minimal UF. cc: MD Zach Bergeron MD
[2018-10-03] MEDS ORDERED: PRILOSEC PO ONE (18:20)
--- NOTE | 2018-10-03 18:30 | HEMO/ONC CONSULTATION ---
DATE: 10/02/2018 REQUESTING PHYSICIAN: Zach Smith MD REASON FOR CONSULTATION: Lymphoma, patient known. HISTORY OF PRESENT ILLNESS: Ms. 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 She presented to the emergency department after her found her to be nonresponsive. She was having decreased appetite with nausea. In the emergency department she was found to have a very low blood sugar in the 40s and deterioration of her renal function, with a creatinine above 4. She has now been admitted for further evaluation and treatment. Again, we follow the patient for diffuse large B cell lymphoma. She also has persistent follicular lymphoma. She recently had a PET scan on 07/31/2018 which showed her to have stable pelvic and right axillary lymph nodes. She also has some aortocaval nodes that are overall stable. Really, her PET scan had no significant changes, although lymphadenopathy noted on PET scan is related to her persistent follicular lymphoma. This is a rather indolent lymphoma and after talking with her, she decided to continue with monitoring and defer treatment at this time. No evidence of diffuse large B cell lymphoma on her most recent scan. PAST MEDICAL HISTORY: 1. Hypertension. 2. Diabetes mellitus type 2. 3. Gout. 4. Osteoarthritis. 5. Hypothyroidism. 6. Diffuse large B cell lymphoma, status post treatment with R-CVP which she completed in 03/2015. No further evidence of diffuse large B cell lymphoma noted. 7. Follicular lymphoma, status post most recent treatment with Rituxan in 10/2016. She has overall stable disease. 8. Iron-deficiency anemia. 9. Chronic kidney disease. PAST SURGICAL HISTORY: 1. Appendectomy. 2. Cholecystectomy. 3. Left breast biopsy. SOCIAL HISTORY: The patient is . She denies any alcohol or tobacco use. She denies any illicit drug use. FAMILY HISTORY: Negative for heart disease, lung disease and renal disease. REVIEW OF SYSTEMS: As per the HPI. All else negative and noncontributory. PHYSICAL EXAMINATION: Vital signs: Temperature 97.3 degrees, heart rate 68, respirations 16, blood pressure 125/54, O2 saturation 100% on 2 L nasal cannula. General: This is an ill- appearing female, lying in hospital bed. HEENT: Head normocephalic, atraumatic. Eyes: Pupils equal, round and reactive. Ears, nose, throat, neck and mouth: Oral mucosa appears to be normal. Cardiovascular: Regular rate and rhythm. Respiratory: Chest is essentially clear. No rhonchi, rales or wheezing noted. Gastrointestinal: Abdomen is soft, with positive bowel sounds. Musculoskeletal: No obvious bony abnormalities. Extremities: Some edema noted. Neurologic: The patient is alert. ASSESSMENT AND PLAN: 1. Lymphoma, previous history of diffuse large B cell lymphoma as well as follicular lymphoma. No evidence of diffuse large B cell lymphoma on most recent scans done in 07/2018. She does have a persistent follicular lymphoma, which is an indolent lymphoma and will be present in some form for the rest of her life. She has no indications for treatment. Last PET scan, again, shows overall stable disease. We do not believe that her renal failure or liver issues are related to her lymphoma at this time. The workup is in process and will follow along. 2. Acute renal failure on chronic kidney disease. It appears that Dr. Smith is ordering an abdominal ultrasound to evaluate the patient's kidneys. We will follow up on those results. Possibly get Nephrology involved and follow up on their results as well. The patient's creatinine seems to be worsening. 3. Transaminitis. Again, workup is in progress. Not believed to be secondary to her lymphoma history. 4. Hypoglycemia. Management per Dr. Smith and his team. 5. Diabetes mellitus type 2. Management, again, per the primary team. 6. Episodes of being unresponsive. The patient will continue to be monitored closely. They have her on broad-spectrum antibiotics. Her urinalysis is consistent with a urinary tract infection. Continue intravenous antibiotics per the primary team. We want to thank you for consulting us on Ms. Oakes while she is here at [facility]. Again, we will continue to follow along with the patient throughout her hospitalization. We will continue to follow along, too, with results of scans and we will be available for any further assistance as needed. Dictated by ELVA Howard for Ginna Maloney MD cc: MD Zach Simms MD I have seen and examined the patient and the above note reflects my history, physical, assessment and plan. Ginna SHOEMAKER
--- NOTE | 2018-10-03 20:23 | GASTROENTEROLOGY CONSULTATION ---
DATE: 10/03/2018 REASON FOR CONSULTATION: Elevated liver function tests. HISTORY OF PRESENT ILLNESS: This is a 78-year-old female. She has multiple family members at the bedside. Her assisted with review of systems. He states on Sunday she had episodes of vomiting. She was not able to eat much. She took some Zofran. The next day, she slept most of the day and they had trouble waking her up. She was lethargic and reports she was unresponsive. She was brought into the emergency room. At that time, she was found to have a low blood sugar, and also found to have elevated BUN and creatinine. She had denied chest pain or no shortness of breath. At present time of evaluation, she is awake, alert, and in no acute distress. She had denied abdominal pain. Her family reported that she had decreased urine output. She had a Vas-Cath placed and had dialysis today with 1.2 L of fluid removed. Patient has reported some dysphagia since her Vas-Cath placement. She has had trouble drinking or eating. She denies diarrhea. No reported fever or chills. No reported blood in the stool or black stools. PAST MEDICAL HISTORY: 1. Hypertension. 2. Diabetes type 2. 3. Gout. 4. Osteoarthritis. 5. Hypothyroidism. PAST SURGICAL HISTORY: 1. Appendectomy. 2. Cholecystectomy. 3. Left breast biopsy. 4. Inguinal lymph node biopsy in July of this year. ALLERGIES: No known drug allergies. HOME MEDICATIONS: 1. Allopurinol 300 mg daily. 2. Elavil 50 mg every night. 3. Norvasc 5 mg every day. 4. Restasis drops twice a day. 5. Diclofenac 75 mg twice a day. 6. Enalapril 20 mg twice a day. 7. Lasix 40 mg as needed. 8. Gabapentin 800 mg twice a day. 9. Glipizide 5 mg twice a day. 10. Synthroid 150 mcg daily. 11. Metformin 1000 mg twice a day. 12. Methocarbamol 750 mg as needed. 13. Ditropan XL 5 mg twice a day. 14. Percocet 1 tablet daily. 15. Requip 1 twice a day. 16. Simvastatin 20 mg daily. 17. Coumadin 1 mg daily. SOCIAL HISTORY: She is . No reported alcohol or tobacco use. REVIEW OF SYSTEMS: Per History of Present Illness. PHYSICAL EXAMINATION: Vital Signs: Temperature 97.7 degrees, pulse 120, respirations 18, blood pressure 105/55. General: Patient is awake and alert, in no acute distress. HEENT: Normocephalic atraumatic. Pupils equal, round, reactive to light. Sclerae nonicteric. Oral mucosa is moist. No signs of thrush. Lungs: Sound essentially clear bilaterally. Cardiovascular: Regular rate and rhythm. Abdomen: Soft, nontender. Positive bowel sounds. LABORATORY: Hematology: WBC 12.40, hemoglobin 11.0, hematocrit 35.0, MCV 96.4, platelet 158,000 Coagulation: Pro time 13.2, INR 0.93. Chemistry: Sodium 135, potassium 4.7, chloride 100, CO2 24, BUN 31, creatinine 3.3, glucose 112, calcium 7.1, total bilirubin 0.39, AST 276, ALT 1613, alkaline phosphatase 264. ASSESSMENT AND PLAN: 1. Altered mental status has resolved. 2. Acute kidney injury. 3. Recent hypoglycemia. 4. History of lymphoma. Follows with Dr. Ginna Maloney. 5. Elevated liver function tests, most likely related to ischemic injury to the liver. Patient has had dialysis today. She is complaining of a sore throat and dysphagia since her Vas-Cath was placed. We will add GI cocktail to her medications and add proton pump inhibitor. We will monitor her liver function tests and repeat labs in the morning. Further plans will be made according to progress and results. Patient was also seen and examined by Dr. Gallegos. Thank you for this consultation. Dictated by ANANYA Novak for Rudy Gallegos MD cc: ANANYA Luciano MD Allen J. Schmidt, MD
[2018-10-03] MEDS ORDERED: NEURONTIN PO SCH (21:00)
[2018-10-04] MEDS: LEVAQUIN 250 MG/D5W 250 MG/50 ML IVPB IV SCH (04:45)
[2018-10-04] MEDS: D10W 1,000 ML IV SCH ×2 (05:17→09:03)
[2018-10-04] MEDS ORDERED: D50W SYRINGE ONE (05:34)
[2018-10-04] MEDS ORDERED: D50W SYRINGE IV ONE (05:46)
[2018-10-04 06:05] LABS: HEMATOCRIT 28.6 % (37.0-47.0); HEMOGLOBIN 9.1 g/dL (12.0-16.0); MCHC 31.8 g/dL (33-37); MCV 97.3 FL (81-99); MPV 10.5 FL (7.4-10.4); RBC 2.94 XMIL (4.2-5.4); RDW 14.8 % (11.5-14.5); WBC 7.21 X1000 (4.8-10.8)
[2018-10-04] MEDS ORDERED: NS 2,000 ML MISC PRN (06:09)
[2018-10-04] MEDS ORDERED: TIGHT: 0.2 ML/HR FOR DIALYSIS MISC PRN (06:09)
[2018-10-04] MEDS ORDERED: HEPARIN IV PRN (06:09)
[2018-10-04] MEDS: SYNTHROID PO SCH (06:25)
[2018-10-04] MEDS: PRILOSEC PO SCH (06:27)
[2018-10-04 06:43] LABS: ALB/GLOB RATIO 1.7; ALBUMIN 2.6 g/dL (3.5-5.0); DIRECT BILIRUBIN 0.1 mg/dL (0.00-0.20); TOTAL BILIRUBIN 0.26 mg/dL (0.20-1.00); TOTAL PROTEIN 4.1 g/dL (6.3-8.3)
[2018-10-04 06:51] LABS: ALBUMIN 2.6 g/dL (3.5-5.0); CREATININE 4.3 mg/dL (0.5-0.9); PHOSPHORUS 5.9 mg/dL (2.7-4.5); POTASSIUM 5.2 mmol/L (3.5-5.1)
[2018-10-04 06:52] LABS: CALCIUM 6.8 mg/dL (8.8-10.2)
--- NOTE | 2018-10-04 08:02 | PROGRESS NOTE ---
DATE: 10/04/2018 SUBJECTIVE: Ms. Oakes had a little better night. She has moved up to [facility]. OBJECTIVE: She has remained afebrile, temperature 98.2 degrees, pulse 86, respirations 15, blood pressure 124/46. Pupils were equal. No distended neck veins. Cardiovascular exam reveals regular rhythm and rate without murmur or S3. Lungs are clear in all lung carmona. Abdomen is soft. I do not appreciate any pedal edema. DIAGNOSTIC STUDIES: White count 7210, hematocrit is 28, hemoglobin 9.1, platelet count 143,000. Chemistries: Blood sugars last several were 62 57, 119. Sodium 132, potassium 5.2, chloride 97, BUN 33, creatinine 4.3. ASSESSMENT AND PLAN: 1. Altered mental status. This is resolved. I think multifactorial, metabolic encephalopathy with underlying hepatic dysfunction and renal dysfunction and hypoglycemia. 2. Acute kidney injury suspect acute tubular necrosis (ATN). 3. Hyperglycemia. She has been on glipizide. 4. History of lymphoma, followed by Dr. Ginan Maloney. 5. Elevated liver enzymes. Suspect probably liver injury from hypotension and that is the presumption. 6. Her lymphoma, previous history of diffuse large B-cell lymphoma as well as follicular lymphoma. No evidence of diffuse large B lymphoma on most recent scans 08/14/2018. She does have persistent follicular lymphoma, which is an indolent lymphoma and would be present in some form the rest of her life. No indications for treatment. Last PET scan showed overall stable disease and the belief is that her renal failure liver and issues are related. I do not believe that they are related to lymphoma at this time. I appreciate Dr. Maloney's help. We will continue current measures. Sugars seem to be doing better. Review of her current orders, I do not see any change. As noted she has some hyperkalemia and moderate metabolic acidosis. Her uremia is significant. Dr. Baez will place a dialysis catheter and I think it has already been placed and we will go ahead and treat with dialysis. cc: Zach Smith MD
[2018-10-04] MEDS ORDERED: G.I. COCKTAIL PO SCH (09:00)
[2018-10-04] MEDS: DITROPAN XL PO SCH ×2 (09:03→21:47)
[2018-10-04] MEDS: REQUIP PO SCH ×2 (09:03→21:47)
[2018-10-04] MEDS: RESTASIS 0.05% OPH DROPS BOTH EYES SCH ×2 (09:03→21:47)
--- NOTE | 2018-10-04 13:07 | NEPHROLOGY PROGRESS NOTE ---
DATE: 10/04/2018 SUBJECTIVE: She feels much better today. She is alert and appropriate. She does not necessarily remember all of our conversation from last evening. OBJECTIVE: Vital Signs: Blood pressure 124/46, heart rate 86, respirations 15, afebrile. General: No acute distress. Skin: Warm and dry. Neck: Neck veins are not appreciated. Heart: Regular. Lungs: Equal. No crackles or wheezes. Abdomen: Soft, nontender. Bowel sounds present. Extremities: Have no edema, clubbing, or cyanosis. IMPRESSION: 1. Acute kidney injury. She will have dialysis again today. 2. Urine protein/blood/leukocytes. Continue Levaquin over the weekend and we will reassess that on Sunday. It might be necessary to perform a kidney biopsy. 3. Altered mental status, likely secondary to her hypoglycemia. All of her hypoglycemic medications have been discontinued and she is currently still receiving D10 water. Observe. cc: MD Zach Bergeron MD
[2018-10-04] MEDS: NORVASC PO SCH (13:29)
--- NOTE | 2018-10-04 14:01 | GASTROENTEROLOGY PROGRESS NOTE ---
DATE: 10/04/2018 SUBJECTIVE: The patient was seen in the dialysis unit. The patient states she is feeling better. She has had improvement in her liver function tests since yesterday. OBJECTIVE: Vital Signs: Temperature 97.5 degrees, pulse 73, respirations 16, blood pressure 123/55. LABORATORY: Hematology 7.21, hemoglobin 9.1, hematocrit 28.6, MCV 97.3. Chemistry: Sodium 132, potassium 5.2, chloride 97, CO2 24, BUN 33, creatinine 4.3, glucose 62, total bilirubin 0.26, AST 41, ALT 642, alkaline phosphatase 187. ASSESSMENT AND PLAN: 1. Altered mental status has improved. The patient currently denies complaints. 2. Acute kidney injury. She has been started on dialysis. 3. Elevated liver enzymes. Most likely related to ischemic hepatitis. Her liver enzymes have improved today. We will continue to follow. 4. History of lymphoma, following with Dr. Ginna Maloney. PLAN: We will continue to follow the patient's liver enzymes, they have improved. Further plans will be made according to her progress. I have discussed this case with Dr. Gallegos. Dictated by ANANYA Novak for Rudy Gallegos MD cc: ANANYA Luciano MD Allen J. Schmidt, MD
[2018-10-04] MEDS: ULTRAM PO PRN ×2 (16:39→22:46)
[2018-10-04] MEDS: G.I. COCKTAIL PO SCH ×2 (16:40→21:47)
[2018-10-04] MEDS: ROBAXIN PO PRN (21:51)
[2018-10-05] MEDS: D10W 1,000 ML IV SCH ×2 (03:28→23:45)
[2018-10-05] MEDS: LEVAQUIN 250 MG/D5W 250 MG/50 ML IVPB IV SCH (03:28)
[2018-10-05 05:43] LABS: HEMATOCRIT 31.2 % (37.0-47.0); HEMOGLOBIN 9.9 g/dL (12.0-16.0); MCH 30.7 PG (27-31); MCHC 31.7 g/dL (33-37); MCV 96.6 FL (81-99); MPV 10.7 FL (7.4-10.4); RBC 3.23 XMIL (4.2-5.4); RDW 14.3 % (11.5-14.5); WBC 7.01 X1000 (4.8-10.8)
[2018-10-05] MEDS: PRILOSEC PO SCH (06:18)
[2018-10-05] MEDS: SYNTHROID PO SCH (06:18)
[2018-10-05] MEDS: ULTRAM PO PRN ×3 (06:19→21:21)
[2018-10-05 06:21] LABS: ALBUMIN 2.8 g/dL (3.5-5.0); CALCIUM 7.4 mg/dL (8.8-10.2); CREATININE 3.9 mg/dL (0.5-0.9); PHOSPHORUS 4.7 mg/dL (2.7-4.5); POTASSIUM 5.2 mmol/L (3.5-5.1)
[2018-10-05] MEDS: RESTASIS 0.05% OPH DROPS BOTH EYES SCH ×2 (08:49→21:21)
[2018-10-05] MEDS: ROBAXIN PO PRN ×2 (08:49→21:21)
[2018-10-05] MEDS: REQUIP PO SCH ×2 (08:49→21:21)
[2018-10-05] MEDS: NORVASC PO SCH (08:49)
[2018-10-05] MEDS: DITROPAN XL PO SCH ×2 (08:49→21:20)
[2018-10-05] MEDS: G.I. COCKTAIL PO SCH ×3 (08:50→21:21)
--- NOTE | 2018-10-05 09:09 | CONSULTATION ---
DATE OF CONSULTATION: 10/04/2018 REASON FOR CONSULTATION: Consultation for acute kidney injury, renal stone, or reported urinary retention. CONSULTING PHYSICIAN: Dr. Jasvir Monsalve. HISTORY OF PRESENT ILLNESS: A 78-year-old female with previous urologic history pertinent for urolithiasis, who presented on 10/01/2018 to the emergency room with altered mental status, hypoglycemia and acute kidney injury with creatinine above 4. There was a reported decreased urine output. During workup, imaging was done with CT abdomen and pelvis on 10/02/2018, which revealed 13 mm left renal pelvis stone, as well as bilateral perinephric scarring. The patient was seen by several specialties, and has been initiated on dialysis. She reports that she has been aware of the left renal stone since [address] lim diagnosed her with it. She followed with him for several years, and was told to leave it alone unless it caused her flank pain. She denies significant flank pain. She reports rare urinary tract infection. She states that prior to getting sick, she voided normally. She denies significant urinary incontinence, sensation of incomplete emptying, dysuria or nocturia. PAST MEDICAL HISTORY: B-cell lymphoma, chronic kidney disease, hypothyroidism, osteoarthritis, gout, diabetes mellitus, hypertension, urolithiasis. PAST SURGICAL HISTORY: Cholecystectomy, appendectomy, breast biopsy. ALLERGIES: No known drug allergies. FAMILY HISTORY: Negative for malignancies or urolithiasis. SOCIAL HISTORY: She denies tobacco, alcohol or illicit drug use. HOME MEDICATIONS: Elavil, simvastatin, Requip, metformin, glipizide, Synthroid, Ditropan XL 5 mg b.i.d., enalapril, Diclofenac, allopurinol, methocarbamol, gabapentin, warfarin, furosemide, Norvasc, cyclosporine ophthalmic drops, and Percocet p.r.n. REVIEW OF SYSTEMS: Reviewed 12 systems that were negative, with the exception to the HPI. PHYSICAL EXAMINATION: Vital Signs: T 98.5 degrees, P 86, BP 151/55. General: Pleasant female in no acute distress. HEENT: Normocephalic and atraumatic. Cardiovascular: Regular rate and rhythm. No murmurs appreciated. Pulmonary: Bilateral breath sounds. Normal inspiratory effort. Abdomen: Soft, protuberant, nontender to palpation. Nondistended. Back: Negative for CVA tenderness. : Munoz catheter in place draining straw-colored urine. The bladder is nontender to palpation. The patient declined pelvic examination at the time of consultation. Dermatologic: No obvious skin rashes. Neurologic: Alert and oriented x3. Psychiatric: Appropriate mood and affect. Lymphatic: No cervical lymphadenopathy. No groin lymphadenopathy. PERTINENT LABS: White cell count is 7000, hematocrit is 29, creatinine is 4.3. Her urine culture is growing Enterococcus faecalis. PERTINENT IMAGES: CT abdomen and pelvis without contrast on 10/02/2018 as per HPI. ASSESSMENT AND PLAN: A 78-year-old female with altered mental status and acute kidney injury. Large left renal stone and perinephric scarring consistent with previous urinary tract infections. I personally reviewed CT scan images. I discussed those with the patient and the family, who were present at bedside. I discussed with the patient that her acute kidney injury was not from any obstruction that I could identify and hence, she in my opinion, does not need a urologic intervention at this point. I have discussed with the patient the large kidney stone, and that she would be unlikely to pass it should it try to do so. The patient states that she has had the stone for 20 years plus and does not desire intervention at this time. I agree with her. I have discussed with her that perinephric scarring reflected previous UTIs and that certainly could contribute to her overall renal function deterioration, but again during this hospitalization she does not have any evidence of obstruction and hence would not benefit from urologic intervention. I discussed with the patient the Munoz catheter could not be removed as her urine output picks up, and primary team is comfortable with having it removed. PLAN: 1. No urologic intervention needed at this point. 2. Patient was instructed to contact our office if she decides to have her stone addressed on an outpatient basis after she is discharged. 3. If further urologic issues arise, please call with questions. Thank you for the consultation. cc: MD Zach Salcedo MD
--- NOTE | 2018-10-05 09:58 | PROGRESS NOTE ---
DATE: 10/05/2018 SUBJECTIVE: She says she is not feel real good. Is mainly the pain, but she is breathing comfortably. OBJECTIVE: Vital signs: She is afebrile, temperature 98.2 degrees, pulse 86, respirations 17, blood pressure 172/66. HEENT: Pupils are equal and round. Lungs: Clear in all lung carmona. Cardiovascular: Regular rhythm and rate without murmur or S3. Abdomen: Soft. Skin: Warm and dry. Genitourinary: Urine output is 1200 mL. ASSESSMENT AND PLAN: 1. Patient with large left renal stone and perinephric scarring consistent with previous urinary tract infections. Dr. Giordano looked at the CT images. Do not feel the acute kidney injury is from any obstruction, so no urologic intervention recommended at this time. Feels like his perinephric scarring reflecting previous urinary tract infections. 2. Acute tubular necrosis. Nephrology following. Dialyze as needed. Volume and electrolytes. She has a Vas-Cath in place. 3. Urinary tract infection. Continue Levaquin. Dr. Monsalve to decide whether she needs a kidney biopsy. 4. Altered mental status with hypoglycemia. Hypoglycemia seems to have improved. Hematocrit is stable at 31, hemoglobin 9.9, creatinine 3.9, BUN 24, bicarb is 26, potassium has come down 5.2. 5. Hepatitis. Suspect this was from hypoglycemia and hypotension at home. She appeared to be volume contracted when she came in so will continue to follow. We will check liver functions again tomorrow. Blood sugars appear well controlled. She has diabetes mellitus and on patterned sugars. Urine output appears to have improved. Has a Munoz catheter in place. cc: Zach Smith MD
[2018-10-05 10:31] LABS: ALB/GLOB RATIO 1.3; ALBUMIN 2.8 g/dL (3.5-5.0); DIRECT BILIRUBIN 0.1 mg/dL (0.00-0.20); TOTAL BILIRUBIN 0.31 mg/dL (0.20-1.00)
[2018-10-05] MEDS: ZOFRAN IV PRN (12:17)
[2018-10-05 13:57] LABS: URINE SOURCE CATH
[2018-10-05 14:00] LABS: BILIRUBIN URINE NEGATIVE (NEGATIVE); BLOOD URINE MODERATE (NEGATIVE); COLOR YELLOW; GLUCOSE URINE TRACE mg/dL (NEGATIVE); KETONE URINE NEGATIVE (NEGATIVE); LEUKOCYTES URINE LARGE (NEGATIVE); NITRITE URINE NEGATIVE (NEGATIVE); PROTEIN URINE 100 mg/dL (NEGATIVE); TURBIDITY URINE HAZY (CLEAR); UROBILINOGEN URINE NORMAL (NORMAL)
[2018-10-05 14:07] LABS: UR EPITHELIAL CELLS <10 /HPF (<10); URINE BACTERIA NEGATIVE /HPF; URINE RBC TNTC /HPF (<10); URINE WBC TNTC /HPF (<10)
[2018-10-05 14:15] LABS: URINE CASTS NONE SEEN; URINE CRYSTALS NONE SEEN; URINE SMALL ROUND CELLS NONE SEEN; URINE YEAST NONE SEEN
--- NOTE | 2018-10-05 19:53 | GASTROENTEROLOGY PROGRESS NOTE ---
DATE: 10/05/2018 SUBJECTIVE: Patient is complaining of some nausea this morning. Her liver function tests are improving. Today total bilirubin 0.31, AST 30, ALT 454, alkaline phosphatase 179. She denies abdominal pain. OBJECTIVE: Vital Signs: Temperature 98.2, pulse 84, respirations 17, blood pressure 169/72. LABORATORY: Hematology: WBC 7.01, hemoglobin 9.9, hematocrit 31.2, MCV 96.6, platelets 134. Chemistry: Sodium 131, potassium 5.2, chloride 94, CO2 of 26, BUN 25, creatinine 3.9, glucose 146. Total bilirubin 0.31, AST 30, ALT 454, alkaline phosphatase 179. ASSESSMENT AND PLAN: 1. Altered mental status has improved. 2. Acute kidney injury. She was started on dialysis. 3. Elevated liver enzymes. Most likely related to ischemic hepatitis. Her liver enzymes are improving. Will continue to follow and further plans to be made according to her progress. I have discussed this case with Dr. Gallegos. Dictated by ANANYA Novak for Rudy Gallegos MD cc: ANANYA Luciano MD Allen J. Schmidt, MD
--- NOTE | 2018-10-05 19:59 | NEPHROLOGY PROGRESS NOTE ---
DATE: 10/05/2018 SUBJECTIVE: No new complaints. OBJECTIVE: Vital Signs: Blood pressure 169/72, heart rate 84, respirations 17, afebrile. Intake 2 L, output 2.7 L but only 180 mL of urine output. Skin: Warm and dry. Conjunctivae are pink. Neck: Neck veins are not distended. Heart: Regular with systolic murmur. Lungs: Equal. No crackles. Abdomen: Obese, soft, nontender. Bowel sounds present. Extremities: 1+ edema. No clubbing or cyanosis. IMPRESSION: Acute kidney injury. Presumed. No recovery. Presumably acute tubular necrosis though her urine is abnormal with white cells, red cells, proteinuria. We will continue Cipro over the weekend as her urine culture did grow Enterococcus faecalis. cc: MD Zach Bergeron MD
[2018-10-06] MEDS: LEVAQUIN 250 MG/D5W 250 MG/50 ML IVPB IV SCH (03:30)
[2018-10-06] MEDS: SYNTHROID PO SCH (06:06)
[2018-10-06] MEDS: PRILOSEC PO SCH (06:06)
[2018-10-06 06:10] LABS: HEMATOCRIT 32.6 % (37.0-47.0); HEMOGLOBIN 10.7 g/dL (12.0-16.0); MCH 30.8 PG (27-31); MCHC 32.8 g/dL (33-37); MCV 93.9 FL (81-99); MPV 10.1 FL (7.4-10.4); RBC 3.47 XMIL (4.2-5.4); RDW 13.7 % (11.5-14.5); WBC 8.04 X1000 (4.8-10.8)
[2018-10-06 07:09] LABS: ALBUMIN 2.7 g/dL (3.5-5.0); CALCIUM 7.7 mg/dL (8.8-10.2); PHOSPHORUS 5.7 mg/dL (2.7-4.5)
[2018-10-06 07:10] LABS: POTASSIUM 6.7 mmol/L (3.5-5.1)
[2018-10-06] MEDS ORDERED: D50W SYRINGE IV ONE (08:20)
[2018-10-06] MEDS ORDERED: HUMULIN R IV ONE (08:20)
[2018-10-06] MEDS ORDERED: ALBUTEROL NEB INH ONE (08:20)
[2018-10-06] MEDS: NORVASC PO SCH (08:52)
[2018-10-06] MEDS: REQUIP PO SCH ×2 (08:52→20:47)
[2018-10-06] MEDS: G.I. COCKTAIL PO SCH ×3 (08:52→21:34)
[2018-10-06] MEDS: RESTASIS 0.05% OPH DROPS BOTH EYES SCH ×2 (08:53→20:47)
[2018-10-06] MEDS: DITROPAN XL PO SCH ×2 (08:53→21:34)
[2018-10-06] MEDS ORDERED: ALBUTEROL NEB ONE (09:02)
[2018-10-06] MEDS ORDERED: VELTASSA PO ONE (10:11)
--- NOTE | 2018-10-06 10:29 | PROGRESS NOTE ---
DATE: 10/06/2018 SUBJECTIVE: Ms. Oakes is still not feeling very good. She did eat a good portion of her breakfast. Noted her potassium was a little high today. PHYSICAL EXAMINATION: Temperature is 98.8 degrees, pulse 93, respirations 18, blood pressure 157/71. Pupils are equal and round. Lungs are clear in all lung carmona. Cardiovascular Examination: Regular rhythm and rate without murmur or S3. Urine output is over 1000 mL. ASSESSMENT AND PLAN: 1. Acute kidney injury, presumed acute tubular necrosis. No recovery at this point. Her urine is abnormal with white blood cells, red blood cells, and proteinuria. Continue her Cipro. Her urine did grow Enterococcus faecalis. 2. Altered mental status, improved. 3. Elevated liver enzymes. I presume this is shocky liver and liver enzymes seem to be going down. We will check again tomorrow. 4. Hyperkalemia. Dr. Monsalve aware. Will not get dialysis today. 5. Osteoarthritis. 6. History of lymphoma. Aware. 7. I do not see any change in her medication. Blood pressure is still a little bit high, systolic. Continue to follow. Watch her hematocrit and hemoglobin. No potassium. It was 6.7. They may give her some Veltassa. Sodium a little low too with hyponatremia. cc: Zach Smith MD
[2018-10-06] MEDS: LOKELMA POWDER PACKET PO SCH ×3 (11:06→22:37)
[2018-10-06 13:05] LABS: ALBUMIN 2.8 g/dL (3.5-5.0); DIRECT BILIRUBIN 0.1 mg/dL (0.00-0.20); TOTAL BILIRUBIN 0.35 mg/dL (0.20-1.00); TOTAL PROTEIN 5.5 g/dL (6.3-8.3)
--- NOTE | 2018-10-06 16:41 | GASTROENTEROLOGY PROGRESS NOTE ---
DATE: 10/06/2018 SUBJECTIVE: Ms. Oakes is resting comfortably. She is doing well. According to the daughter who was present at the bedside, she has been somnolent today but apparently had a good breakfast. She denies any new complaints. OBJECTIVE: Vital signs: Temperature 98.0 degrees, pulse 89, breathing 18, blood pressure 127/48. Abdomen: Obese, soft. Bowel sounds are audible. LABS: Reviewed which showed AST is down to 27 now. ALT is 323, down from 1613. Alkaline phosphatase is down to 179 from 264. IMPRESSION AND PLAN: Elevated liver enzymes, most likely from shock liver/ischemic hepatitis. At this point, no new suggestions. I would continue current treatment and will follow. cc: MD Zach Winter MD
[2018-10-06] MEDS: D10W 1,000 ML IV SCH (18:32)
[2018-10-06] MEDS: ULTRAM PO PRN (20:48)
[2018-10-07] MEDS: ULTRAM PO PRN (02:58)
[2018-10-07] MEDS: LEVAQUIN 250 MG/D5W 250 MG/50 ML IVPB IV SCH (02:58)
[2018-10-07] MEDS: SYNTHROID PO SCH ×2 (05:24→06:00)
[2018-10-07] MEDS: PRILOSEC PO SCH ×2 (05:24→06:00)
[2018-10-07] MEDS ORDERED: ULTRAM PO ONE (05:35)
[2018-10-07 05:46] LABS: HEMATOCRIT 27.9 % (37.0-47.0); HEMOGLOBIN 9.2 g/dL (12.0-16.0); MCV 93.9 FL (81-99); MPV 10.2 FL (7.4-10.4); RBC 2.97 XMIL (4.2-5.4); RDW 13.6 % (11.5-14.5); WBC 7.09 X1000 (4.8-10.8)
[2018-10-07] MEDS ORDERED: HEPARIN IV PRN (05:55)
[2018-10-07] MEDS ORDERED: TIGHT: 0.2 ML/HR FOR DIALYSIS MISC PRN (05:55)
[2018-10-07] MEDS ORDERED: NS 2,000 ML MISC PRN (05:55)
[2018-10-07 06:11] LABS: ALB/GLOB RATIO 1.2; ALBUMIN 2.7 g/dL (3.5-5.0); CALCIUM 7.7 mg/dL (8.8-10.2); CREATININE 5.9 mg/dL (0.5-0.9); MAGNESIUM 1.8 mg/dL (1.5-2.7); TOTAL BILIRUBIN 0.3 mg/dL (0.20-1.00)
[2018-10-07 06:28] LABS: PHOSPHORUS 6.6 mg/dL (2.7-4.5)
[2018-10-07 06:32] LABS: POTASSIUM 6.3 mmol/L (3.5-5.1)
--- NOTE | 2018-10-07 07:58 | PROGRESS NOTE ---
DATE: 10/07/2018 SUBJECTIVE: Ms. Oakes says she does not feel good. She is having a lot of pain in her back, wants something stronger for pain. Not sleeping well. OBJECTIVE: Temperature 97.5 degrees, pulse 87, respirations 20, blood pressure 152/60. Pupils are equal. Lungs are clear in all lung carmona. Cardiovascular Examination: Regular rhythm and rate without murmur or S3. Abdomen is soft. Skin is warm and dry. Urine output is 1200 mL. ASSESSMENT AND PLAN: 1. Elevated liver enzymes, most likely shock liver or ischemic hepatitis. This seems to be improving, transaminases, AST is 24, ALT 260, alkaline phosphatase 158. 2. Acute tubular necrosis suspected. Renal function has not improved much. Creatinine is 5.9. Continue dialysis as needed. Volume status, electrolytes, acid-base look okay. 3. Diabetes mellitus type 2. Continue to follow sugars. 4. Lower back pain, osteoarthritis. She states she would like something a little stronger for pain. I will let her try oxycodone or OxyIR 5 mg. We will try every 8 hours as needed. I think we need to get her out of bed and get her walking too, try some physical therapy. cc: Zach Smith MD
[2018-10-07] MEDS: G.I. COCKTAIL PO SCH ×3 (10:33→20:50)
[2018-10-07] MEDS: LOKELMA POWDER PACKET PO SCH (10:33)
[2018-10-07] MEDS: REQUIP PO SCH ×2 (13:00→20:50)
[2018-10-07] MEDS: NORVASC PO SCH (13:00)
[2018-10-07] MEDS: DITROPAN XL PO SCH ×2 (13:01→20:50)
[2018-10-07] MEDS: OXY IR PO PRN ×2 (13:02→20:49)
[2018-10-07] MEDS: RESTASIS 0.05% OPH DROPS BOTH EYES SCH ×2 (13:02→20:50)
--- NOTE | 2018-10-07 14:43 | NEPHROLOGY PROGRESS NOTE ---
DATE: 10/07/2018 TIME SEEN: 0650 SUBJECTIVE: Ms. Oakes is resting quietly in bed. She states that she is just not feeling well, has slight increased work of breathing with cough. OBJECTIVE: Her most recent vital signs temperature 97.5, blood pressure 152/61, heart rate 87, respirations 20, she is on 3 L nasal cannula, last recorded saturation is 95%. She has had 1600 in, 600 mL out to Munoz catheter. LABS: Her sodium is 121, potassium is 6.3, chloride is 85, CO2 24, BUN is 50, creatinine 5.9, glucose 124, her anion gap is 12, her calcium is 7.7, phosphorus 6.6, albumin is 2.7. White count 7.04, hemoglobin 9.2, hematocrit 27.9 with a platelet count of 174,000. PHYSICAL EXAM: This is a 78-year-old white female resting quietly in bed. She appears chronically ill, slight distress secondary to chronic cough.HEENT: Normocephalic, atraumatic. Conjunctiva is pale. She has MILTON. Mucous membranes are dry. Neck: Supple, trachea midline. No evidence of JVD in the upright position. Cardiovascular: She is regular rate and rhythm. She has a systolic murmur. Lungs: Diminished breath sounds bilateral. She does have crackles bilateral with O2 support equal excursion. Abdomen: Obese, soft, nontender. Positive bowel sounds. Genitourinary: Not inspected. Munoz catheter is in place with adequate urine output documented. Extremities: Continues with 1+ lower extremity edema. No clubbing or cyanosis. Neurological: She is alert to person and to place. ASSESSMENT AND PLAN: 1. Acute kidney injury. At this time there is no recovery with a continued elevated BUN and creatinine. She has had some urinary output to Munoz catheter. We will plan for dialysis today, she is to be on a 2 K bath, we will dialyze her for 3-1/2 hours. We will attempt to pull patient 2-3 L of ultrafiltration if tolerated. Considering renal biopsy. rg 2. Electrolytes and acid-base balance. She remains hyperkalemic with hyponatremia with correction on dialysis as indicated. 3. Anemia, this is low but stable. 4. Positive urinary tract infection. She remains on Cipro. Positive Escherichia coli faecalis noted. This is followed by primary care team. Like to thank you for allowing us to follow with this patient. Dictated by ANANYA Gusman for Jasvir Monsalve MD Face to face encounter, data reviewed, discussed with Claudia Mcqueen on 10/07/18. I agree with the above assessment and plan of care. cc: ANANYA Gusman MD Allen J. Schmidt, MD [facility]
[2018-10-07] MEDS: D10W 1,000 ML IV SCH (15:00)
--- NOTE | 2018-10-07 17:23 | HEMO/ONC PROGRESS NOTE ---
DATE: 10/07/2018 SUBJECTIVE: Ms. Oakes is in the hemodialysis department. She reports that she does not feel well and seems concerned that she is not improving overall. OBJECTIVE: Vital Signs: Temperature 97.7 degrees, heart rate 79, respirations 17, blood pressure 163/48, O2 saturation 97% on 3 L nasal cannula. LABS AND STUDIES: White blood cells 7.09, hemoglobin 9.2, hematocrit 27.9, platelet count 174,000. Sodium 121, potassium 6.3, chloride 85, CO2 24, BUN is 50, creatinine is 5.9. ASSESSMENT AND PLAN: 1. 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 Overall disease is stable. No indications for treatment at this time. 2. Acute kidney injury. She is currently on hemodialysis but unfortunately there has been no evidence of recovery. Continue management per the Nephrology team. 3. Elevated liver function tests, likely secondary to shock liver/ischemic hepatitis. Her counts are slightly better today. Continue to monitor. GI is involved. 4. Electrolyte imbalances. Management per Nephrology. We will be following Ms. Oakes throughout her hospitalization. We will be available as needed. Dictated by ELVA Howard for Ginna Maloney MD cc: MD Zach Simms MD I have seen and examined the patient and agree with the above note. It reflects my history, physical exam, assessment and plan. Ginna SHOEMAKER
[2018-10-07 17:43] LABS: URINE SOURCE CATH
[2018-10-07 17:52] LABS: BILIRUBIN URINE NEGATIVE (NEGATIVE); BLOOD URINE SMALL (NEGATIVE); COLOR YELLOW; GLUCOSE URINE 100 mg/dL (NEGATIVE); KETONE URINE NEGATIVE (NEGATIVE); LEUKOCYTES URINE SMALL (NEGATIVE); NITRITE URINE NEGATIVE (NEGATIVE); PH URINE 6.5; PROTEIN URINE 30 mg/dL (NEGATIVE); TURBIDITY URINE CLEAR (CLEAR); UROBILINOGEN URINE NORMAL (NORMAL)
[2018-10-07 17:54] LABS: UR EPITHELIAL CELLS <10 /HPF (<10); URINE BACTERIA NEGATIVE /HPF
--- NOTE | 2018-10-07 18:24 | GASTROENTEROLOGY PROGRESS NOTE ---
DATE: 10/07/2018 SUBJECTIVE: Patient was seen in the dialysis unit. She is complaining of back pain. Currently no reported abdominal pain. Her liver enzymes are improving. OBJECTIVE: Vital Signs: Temperature 97.7, pulse 79, respirations 17, blood pressure 163/48. General: Patient was awake and alert. She was in the dialysis unit at the time of my evaluation. LABORATORY: Hematology: WBC 7.09, hemoglobin 9.2, hematocrit 27.9, MCV 93.9. Chemistry: Sodium 121, potassium 6.3, chloride 85, CO2 24, BUN 50, creatinine 5.9, glucose 124, total bilirubin 0.30, AST 24, ALT 216, alkaline phosphatase 158. ASSESSMENT AND PLAN: Elevated liver enzymes, improving. Most likely from shock liver/ischemic hepatitis. Continue current treatment. We will continue to follow. We will continue to follow her liver enzymes. Further plans will be made according to her progress. I have discussed this case with Dr. Gallegos. Dictated by ANANYA Novak for Rudy Gallegos MD cc: ANANYA Luciano MD Allen J. Schmidt, MD
[2018-10-07] MEDS ORDERED: DULCOLAX PR PRN (18:42)
[2018-10-07] MEDS: MILK OF MAGNESIA PO PRN (20:49)
[2018-10-08] MEDS: ULTRAM PO PRN (01:22)
[2018-10-08] MEDS: LEVAQUIN 250 MG/D5W 250 MG/50 ML IVPB IV SCH (04:45)
[2018-10-08] MEDS: OXY IR PO PRN ×2 (04:45→19:16)
[2018-10-08] MEDS: SYNTHROID PO SCH ×2 (06:03→08:11)
[2018-10-08] MEDS: PRILOSEC PO SCH (06:03)
[2018-10-08 06:52] LABS: INR 0.93; PROTIME 13.2 Seconds (11.0-16.0)
[2018-10-08 06:53] LABS: PTT 40.1 Seconds (22.3-41.8)
--- NOTE | 2018-10-08 07:13 | EKG Report ---
Test Performed on : 10/07/2018 8:41:45 PM Test Reason : possible afib rvr Blood Pressure : / mmHG Vent. Rate : 106 BPM Atrial Rate : 122 BPM P-R Int : 000 ms QRS Dur : 084 ms QT Int : 308 ms P-R-T Axes : 000 002 020 degrees QTc Int : 409 ms Atrial fibrillation. with rapid ventricular response. Abnormal ECG When compared with ECG of 03-OCT-2018 06:43, Atrial fibrillation. has replaced Sinus rhythm. Confirmed by Anirudh PHILLIPS, Mike Ellison ([id number]) on 10/08/2018 9:06:44 AM
[2018-10-08] MEDS: MIRALAX PO SCH (08:10)
[2018-10-08] MEDS: G.I. COCKTAIL PO SCH ×3 (08:11→20:18)
[2018-10-08] MEDS: RESTASIS 0.05% OPH DROPS BOTH EYES SCH ×2 (08:11→20:18)
[2018-10-08] MEDS: NORVASC PO SCH (08:11)
[2018-10-08] MEDS: DITROPAN XL PO SCH ×2 (08:11→20:18)
[2018-10-08] MEDS: REQUIP PO SCH ×2 (08:11→20:18)
[2018-10-08] MEDS: D5 NS 1,000 ML IV SCH ×2 (09:22→20:45)
[2018-10-08 09:28] LABS: CALCIUM 8.1 mg/dL (8.8-10.2); POTASSIUM 5.2 mmol/L (3.5-5.1)
--- NOTE | 2018-10-08 12:31 | PROGRESS NOTE ---
DATE: 10/08/2018 SUBJECTIVE: Ms. Oakes feels a little better this morning than she did yesterday. Breathing comfortably. She does have aching in her back and her muscles. PHYSICAL EXAMINATION: Temperature 98.0 degrees, pulse 74, respirations 16, blood pressure 145/51. Pupils are equal and round. Lungs are clear in all lung carmona. Cardiovascular Examination: Regular rhythm and rate without murmur or S3. Abdomen is soft. Skin is warm and dry. No pedal edema. Urine output 4200 mL. ASSESSMENT AND PLAN: 1. Lymphoma, history including diffuse B-cell lymphoma, follicular lymphoma. Overall disease is stable. No indications for treatment at this time. 2. Acute kidney injury, suspect acute tubular necrosis. Continue dialysis as needed for volume status and electrolytes. 3. Elevated liver function. Suspect shock liver, ischemic hepatitis. Blood counts are better. The liver functions have improved. 4. Hypoglycemia, which has improved. Change her fluid. 5. Electrolyte imbalances. We will continue to follow. Potassium tends to run a little high. Creatinine is 4.0. Her urine output appears to have improved. No recovery as of yet. Elevated BUN and creatinine. She got dialysis again yesterday. REVIEW OF HER ORDERS: I do not see any change. Blood pressures appear well controlled. Lab reviewed. She does have some hyponatremia and hypercalcemia from yesterday. This morning, though, sodium is a little higher at 126, potassium 5.2, chloride 88, BUN 39, creatinine 4.0. Blood sugars have been 182, 139, 128, 136. cc: Zach Smith MD
--- NOTE | 2018-10-08 15:15 | GASTROENTEROLOGY PROGRESS NOTE ---
DATE: 10/08/2018 SUBJECTIVE: Patient states she feels a little better today. She is complaining of less pain. Her back pain has improved. OBJECTIVE: Vital Signs: Temperature 98.0 degrees, pulse 74, respirations 16, blood pressure 145/51. General: Patient is awake and alert, no acute distress. LABORATORY: Hematology: WBC 7.09, hemoglobin 9.9, hematocrit 27.9. Chemistry: Sodium 126, potassium 5.2, chloride 88, CO2 26, BUN 39, creatinine 4.0, glucose 128. Liver function test on 10/07/2018 showed total bilirubin 0.30, AST 24, ALT 216, alkaline phosphatase 158. ASSESSMENT AND PLAN: 1. Lymphoma. Following with hematology. 2. Acute kidney injury. Patient received dialysis yesterday. 3. Elevated liver function tests, most likely related to shock liver/ischemic hepatitis. Liver function tests have improved. We will repeat tomorrow. Will continue to follow. Further plans to be made according to her progress. I have discussed this case with Dr. Gallegos. Dictated by ANANYA Novak for Rudy Gallegos MD cc: ANANYA Luciano MD Allen J. Schmidt, MD
--- NOTE | 2018-10-08 16:23 | Diag Imaging Result Doc PS360 ---
EXAM: CT RENAL BX, PERCUTAN 10/08/2018 HISTORY: unknown cause for DAVID vs. ATN TECHNIQUE: Percutaneous biopsy of the right kidney. COMMENT: The risks and benefits of the procedure including the possibility of bleeding, infection, reaction to lidocaine, or arteriovenous fistula formation was discussed with the patient and she agreed to the procedure. Following sterile preparation of the skin posterior laterally over the right kidney lower midpole and administration 1% lidocaine to the skin and deeper soft tissues, a 18-gauge coaxial OnMyBlockno core biopsy needle was employed to obtain eight core from the right kidney. These were sent to the laboratory in saline. The specimens were examined by Dr. John. There are no immediate complications. IMPRESSION: Successful CT-guided right renal biopsy. Electronically signed by Arnold Cortes 10/08/2018 4:21 PM
--- NOTE | 2018-10-08 19:09 | NEPHROLOGY PROGRESS NOTE ---
DATE: 10/08/2018 DATE AND TIME: Date seen 10/08/2018. Time seen 0655. SUBJECTIVE: Ms. Oakes is resting quietly in bed. Head of the bed is elevated. Her is at her bedside. She states that she thinks she is doing just a little bit better today. Her breathing has improved. She feels less swollen. OBJECTIVE: Vital Signs: Her most recent vital signs: Temperature 98.2, pressure 144/36, heart rate 77, respirations 16. She is on 2 L nasal cannula. Last recorded saturation 98%. She has had 800 in, she has had 4025 out with 3 L on dialysis yesterday. LABORATORY DATA: Sodium is 126, potassium 5.2, chloride is 88, CO2 26, BUN 39, creatinine 4, glucose is 128, her anion gap is 12, her calcium is 8.1, magnesium of 2. Patient's hemoglobin was 9.9 this morning. Her sedimentation rate was 56. PHYSICAL EXAMINATION: This is a 78-year-old white female. She is resting quietly in bed. Head of the bed is elevated. She appears chronically ill. She is in no acute distress.Skin: Warm and dry. HEENT: Normocephalic, atraumatic. Conjunctivae pale. She has MILTON. Mucous membranes are dry. Neck: Supple. Trachea midline. No evidence of JVD in the upright position. Cardiovascular: She has irregular heart rate. She appears to be sinus rhythm with frequent PACs. She has a soft systolic murmur. Lungs: Clear to auscultation anteriorly. Equal excursion. She is currently on O2. Abdomen: Large, round, soft, nontender. Positive bowel sounds. Genitourinary: Not inspected. Adequate urine out with dialysis assist. Extremities: Continues with 1+ lower extremity edema. No clubbing or cyanosis. Neurologic: Alert and oriented x 3. ASSESSMENT AND PLAN: 1. Acute kidney injury. The patient has not had any recovery requiring hemodialysis secondary to possible cause and ruling out ATN. The patient is in agreement to having a renal biopsy performed today under CT per Radiology. We have notified them and proceeded. She is going down for this procedure this afternoon. Hemoglobin is holding steady. We will evaluate and wait for further results. 2. Electrolytes and acid-base balance. The patient continues to have a drop in her sodium, more than likely secondary to #1. Potassium is acceptable. 3. Acid-base balance. CO2 of 26 with a gap of 12. This is acceptable with correction on dialysis. 4. Anemia. This remains stable after her renal biopsy this morning from 9.9 to 9.5. We will continue to monitor. 5. Urinary tract infection. The patient remains on Cipro secondary to E coli faecalis. I would like to thank you for allowing us to follow with this patient. Dictated by ANANYA Gusman for Jasvir Monsalve MD Face to face encounter, data reviewed, discussed with Claudia Mcqueen on 10/08/18. I agree with the above assessment and plan of care. cc: ANANYA Gusman MD Allen J. Schmidt, MD MTD[facility]
[2018-10-08] MEDS: MILK OF MAGNESIA PO PRN (20:18)
[2018-10-09] MEDS: D5 NS 1,000 ML IV SCH ×2 (02:56→13:21)
[2018-10-09] MEDS: OXY IR PO PRN ×3 (02:57→20:25)
[2018-10-09] MEDS: LEVAQUIN 250 MG/D5W 250 MG/50 ML IVPB IV SCH (02:57)
[2018-10-09] MEDS: PRILOSEC PO SCH (06:00)
[2018-10-09] MEDS: SYNTHROID PO SCH (06:00)
[2018-10-09] MEDS ORDERED: HEPARIN IV PRN (08:00)
[2018-10-09] MEDS ORDERED: TIGHT: 0.2 ML/HR FOR DIALYSIS MISC PRN (08:00)
[2018-10-09] MEDS ORDERED: NS 2,000 ML MISC PRN (08:00)
[2018-10-09] MEDS: NORVASC PO SCH (08:13)
[2018-10-09] MEDS: DITROPAN XL PO SCH ×2 (08:13→20:26)
[2018-10-09] MEDS: REQUIP PO SCH ×2 (08:13→20:25)
[2018-10-09] MEDS: G.I. COCKTAIL PO SCH ×3 (08:13→20:26)
[2018-10-09] MEDS: MIRALAX PO SCH (08:13)
[2018-10-09] MEDS: RESTASIS 0.05% OPH DROPS BOTH EYES SCH ×2 (08:13→20:26)
--- NOTE | 2018-10-09 08:18 | EKG Report ---
Test Performed on : 10/09/2018 03:38:07 AM Test Reason : possible afib with rvr Blood Pressure : / mmHG Vent. Rate : 144 BPM Atrial Rate : 144 BPM P-R Int : 170 ms QRS Dur : 098 ms QT Int : 256 ms P-R-T Axes : 000 -07 031 degrees QTc Int : 396 ms Sinus tachycardia. with occasional premature ventricular complexes. Incomplete right bundle branch block Anterior infarct , age undetermined Abnormal ECG When compared with ECG of 07-OCT-2018 20:41, Sinus rhythm. has replaced Atrial fibrillation. Incomplete right bundle branch block is now present Anterior infarct is now present Confirmed by Anirudh PHILLIPS, Mike Ellison ([id number]) on 10/09/2018 10:20:28 AM
[2018-10-09] MEDS: ULTRAM PO PRN (08:33)
[2018-10-09 09:15] LABS: ALBUMIN 2.4 g/dL (3.5-5.0); CALCIUM 7.9 mg/dL (8.8-10.2); CREATININE 4.8 mg/dL (0.5-0.9); MAGNESIUM 2.2 mg/dL (1.5-2.7); POTASSIUM 5.6 mmol/L (3.5-5.1); TOTAL BILIRUBIN 0.25 mg/dL (0.20-1.00); TOTAL PROTEIN 4.8 g/dL (6.3-8.3)
--- NOTE | 2018-10-09 09:27 | PROGRESS NOTE ---
DATE: 10/09/2018 SUBJECTIVE: said she had a good night. Ate most of her breakfast. She is currently at dialysis. OBJECTIVE: Vital Signs: Vital signs unremarkable. Temperature remains afebrile, temperature 98.5 degrees, pulse 77, respirations 18, blood pressure 168/53. No respiratory distress and apparently still making some urine output, so continue. ASSESSMENT AND PLAN: 1. Acute kidney injury, acute tubular necrosis. She may need to continue dialysis. I think a biopsy was obtained. 2. Elevated liver functions. Suspect shock liver, ischemic hepatitis that seems to be improving. 3. Hypoglycemia, which is resolved. 4. History of lymphoma, which appears to be fairly well controlled at this point. Her blood sugars remain well controlled. We will check electrolytes again tomorrow. She does have some hyponatremia, and has been running a little bit of high potassium. cc: Zach Smith MD
--- NOTE | 2018-10-09 10:02 | NEPHROLOGY PROGRESS NOTE ---
DATE: 10/09/2018 TIME SEEN: 0810. SUBJECTIVE: Ms. Oakes is resting quietly in bed. Head of the bed is elevated. Her is assisting her to eat. She states that she is feeling slightly better today. VITALS: Her most recent vital signs show temperature 97.9, blood pressure 162/62, heart rate 88, respirations 20. She is on 2 L nasal cannula. Last recorded saturation is 99%. She has had 600 in. She has had 2800 out with increased urinary output in the last 24 hours. LABS: Sodium 129, potassium 5.6, chloride 94, CO2 is 20, BUN 46, creatinine is 4.8. Her glucose is 161. Her anion gap is 15, calcium is 7.9, albumin 2.4, magnesium 2.2. PHYSICAL EXAMINATION: General: This is a 78-year-old white female resting quietly in bed. Head of the bed is elevated. She appears chronically ill but no acute distress. Skin: Warm and dry. HEENT: Normocephalic, atraumatic. Conjunctiva is pale pink. She has MILTON. Mucous membranes are dry. Neck: Supple. Trachea midline. No evidence of JVD in the upright position. Cardiovascular: She has an irregular heart pattern, appears to be sinus rhythm on the monitor per telemetry box. She has a systolic murmur. Lungs: Clear to auscultation anteriorly. Equal excursion. Diminished breath sounds posterior bases. Remains on O2 supplementation. Abdomen: Large, obese, soft, nontender. Positive bowel sounds. Genitourinary: Not inspected. Patient has had adequate urine out to void documented with dialysis assist. Extremities: Continues with 1+ lower extremity edema with some bruising evident to the right upper arms. Neurological: She is alert and oriented x3. ASSESSMENT AND PLAN: 1. Acute kidney injury with ATN. Patient remains with dialysis status post renal biopsy yesterday. We will place her on a 2K bath. She is to dialyze for 3.5 hours. We will attempt to pull 2 to 3 L of ultrafiltration. 2. Electrolytes and acid-base balance with correction on dialysis. 3. Anemia. This remains low but stable status post biopsy with a hemoglobin 9.6. 4. Urinary tract infection. This is being followed by primary care with renal dosed antibiotics. 5. Renal biopsy. Patient has tolerated this well. Hemoglobin remains stable. We will plan for outpatient dialysis scheduling upon discharge. I would like to thank you for allowing us to follow with this patient. Dictated by ANANYA Gusman for Jasvir Monsalve MD cc: ANANYA Gusman MD Allen J. Schmidt, MD
[2018-10-09 10:05] LABS: BASO# 0.02 X1000 (0.0-0.2); BASO% 0.3 % (0.0-0.8); EOS# 1.45 X1000 (0.0-0.7); EOS% 22.7 % (0.0-10.0); HEMATOCRIT 30.9 % (37.0-47.0); HEMOGLOBIN 10.2 g/dL (12.0-16.0); IMM GRAN# 0.03 X1000 (0.0-0.04); IMM GRAN% 0.5 % (0.0-0.5); LYMPH% 6.3 % (20.5-51.1); MCH 31.2 PG (27-31); MCV 94.5 FL (81-99); MONO# 0.24 X1000 (0.11-0.59); MONO% 3.8 % (1.7-9.3); NEUT# 4.26 X1000 (1.4-6.5); NEUT% 66.4 % (42.2-75.2); PLT 107 X1000 (130-400); RBC 3.27 XMIL (4.2-5.4); RDW 14.3 % (11.5-14.5)
--- NOTE | 2018-10-09 10:05 | EKG Report ---
Test Performed on : 10/09/2018 09:25:53 AM Test Reason : increased HR Blood Pressure : / mmHG Vent. Rate : 162 BPM Atrial Rate : 163 BPM P-R Int : 000 ms QRS Dur : 088 ms QT Int : 266 ms P-R-T Axes : 000 -23 128 degrees QTc Int : 436 ms Supraventricular tachycardia. Marked ST abnormality, possible lateral subendocardial injury Abnormal ECG When compared with ECG of 09-OCT-2018 03:38, (Unconfirmed) premature ventricular complexes. are no longer present Confirmed by Anirudh PHILLIPS, Mike Ellison ([id number]) on 10/09/2018 10:25:00 AM
[2018-10-09 10:42] LABS: BANDS 2 % (0-1); EOS 14 % (1-10); HYPOCHROM 1+; LYMPHS 8 % (21-51); MONO 2 % (1-9); SEGS 74 % (42-75)
[2018-10-09 14:20] LABS: ANTINEUTROPHIL CYTOPLASMIC AB SEE COMMENTS
--- NOTE | 2018-10-09 16:08 | GASTROENTEROLOGY PROGRESS NOTE ---
DATE: 10/09/2018 SUBJECTIVE: Patient was seen in the dialysis unit. She states she is not feeling as well today as she did yesterday. She reports some pain. Her liver function tests are improving. OBJECTIVE: Vital Signs: Temperature 98.5 degrees, pulse 77, respirations 18, blood pressure 168/53. General: Patient was awake and alert. No acute distress. She was in dialysis at the time of my visit. LABORATORY: Hematology: WBC 6.40, hemoglobin 10.2, hematocrit 30.9, MCV 94.5, platelet 107. Chemistry: Sodium 129, potassium 5.6, chloride 94, CO2 of 20. BUN 46, creatinine 4.8, glucose 161. Total bilirubin 0.25, AST 39, ALT 134, alkaline phosphatase 185. ASSESSMENT AND PLAN: 1. Lymphoma. Following with Hematology. 2. Acute kidney injury. Following with Nephrology. Patient is receiving dialysis today. She has had a renal biopsy, which is pending. 3. Elevated liver function tests, most likely related to shock liver/ischemic hepatitis. Liver enzymes are improving. Will continue to follow. Dr. Gallegos is off the rest of the week. If an emergency arises, please contact Dr. Cole or on-call Gastroenterology physician. I have discussed this case with Dr. Gallegos. Dictated by ANANYA Novak for Rudy Gallegos MD cc: ANANYA Luciano MD Allen J. Schmidt, MD
[2018-10-09] MEDS: MILK OF MAGNESIA PO PRN (16:42)
[2018-10-10] MEDS: D5 NS 1,000 ML IV SCH ×2 (00:07→13:10)
[2018-10-10] MEDS: ULTRAM PO PRN (00:07)
[2018-10-10] MEDS: OXY IR PO PRN ×2 (03:55→14:11)
[2018-10-10] MEDS: LEVAQUIN 250 MG/D5W 250 MG/50 ML IVPB IV SCH (03:55)
[2018-10-10 05:52] LABS: ALB/GLOB RATIO 1.1; ALBUMIN 2.6 g/dL (3.5-5.0); CALCIUM 7.6 mg/dL (8.8-10.2); CREATININE 3.5 mg/dL (0.5-0.9); POTASSIUM 4.6 mmol/L (3.5-5.1); TOTAL BILIRUBIN 0.25 mg/dL (0.20-1.00); TOTAL PROTEIN 4.9 g/dL (6.3-8.3)
[2018-10-10] MEDS: SYNTHROID PO SCH (06:09)
[2018-10-10] MEDS: PRILOSEC PO SCH (06:09)
[2018-10-10] MEDS: RESTASIS 0.05% OPH DROPS BOTH EYES SCH ×2 (08:31→20:11)
[2018-10-10] MEDS: REQUIP PO SCH ×2 (08:31→20:10)
[2018-10-10] MEDS: MIRALAX PO SCH (08:32)
[2018-10-10] MEDS: NORVASC PO SCH (08:32)
[2018-10-10] MEDS: G.I. COCKTAIL PO SCH ×3 (08:32→21:11)
[2018-10-10] MEDS: DITROPAN XL PO SCH ×2 (08:32→20:10)
[2018-10-10] MEDS: PREDNISONE PO SCH (13:08)
--- NOTE | 2018-10-10 15:15 | EKG Report ---
Test Performed on : 10/10/2018 3:02:30 PM Test Reason : HR 140. possible A fib/flutter Blood Pressure : / mmHG Vent. Rate : 153 BPM Atrial Rate : 156 BPM P-R Int : 000 ms QRS Dur : 076 ms QT Int : 226 ms P-R-T Axes : 000 -30 032 degrees QTc Int : 360 ms Supraventricular tachycardia. Left axis deviation Inferior infarct , age undetermined Abnormal ECG When compared with ECG of 09-OCT-2018 09:25, Inferior infarct is now present Nonspecific T wave abnormality, worse in Anterior leads Confirmed by Anirudh PHILLIPS, Mike Ellison ([id number]) on 10/11/2018 10:57:10 AM
[2018-10-10] MEDS: LOPRESSOR PO SCH ×3 (15:34→23:07)
--- NOTE | 2018-10-10 15:57 | GASTROENTEROLOGY PROGRESS NOTE ---
DATE: 10/10/2018 SUBJECTIVE: Patient states she feels better today. Her renal biopsy is still pending. Her liver function tests are improving. OBJECTIVE: Vital Signs: Temperature 98.4 degrees, pulse 78, respirations 17, blood pressure 158/63. General: Patient is awake, alert, no acute distress. LABORATORY: Hematology: WBC 6.40, hemoglobin 10.2, hematocrit 30.9, MCV 94.5, platelet 107,000. Chemistry: Sodium 136, potassium 4.6, chloride 100, CO2 27, BUN 35, creatinine 3.5, glucose 178. Total bilirubin 0.25, AST 35, ALT 114, alkaline phosphatase 186. Renal biopsy results are pending. ASSESSMENT AND PLAN: 1. Lymphoma. Following with Hematology. 2. Acute kidney injury. Following with Nephrology. She received dialysis yesterday. 3. Elevated liver function tests, most likely related to shock liver/ischemic hepatitis. Her liver function enzymes are improving. Will continue to follow. Dr. Gallegos is off the rest of the week. If anything emergent arises, please contact Dr. Cole or on-call Gastroenterology physician. Dictated by ANANYA Novak for Rudy Gallegos MD cc: ANANYA Luciano MD Allen J. Schmidt, MD
--- NOTE | 2018-10-10 15:59 | NEPHROLOGY PROGRESS NOTE ---
DATE: 10/10/2018 SUBJECTIVE: Patient sitting up in bed. No complaints today. OBJECTIVE: Temperature 98.1, pulse 79, respiratory rate 16, blood pressure 153/64. Input 1.3 L, output 3.8 L. General: Elderly female, resting in bed. Awake alert, in no acute distress. HEENT: Normocephalic, atraumatic. Conjunctivae pale. Oral mucosa moist. Neck: Supple, without JVD. Cardiovascular: Regular rate and rhythm. Pulmonary: Clear bilaterally. No increased work of breathing. Abdomen: Soft. Positive bowel sounds. Genitourinary: Not inspected. Extremities: 1+ lower extremity edema. Integumentary: Skin is warm and dry. Some ecchymosis noted of upper extremities. Neurologic: Grossly nonfocal. LAB DATA: Sodium 136, potassium 4.6, CO2 27, creatinine 3.2. ASSESSMENT AND PLAN: 1. Acute kidney injury with the ATN. She is status post renal biopsy. We are awaiting. Preliminary result. Continued with dialysis until the patient achieves some recovery or we have a definitive diagnosis for her ATN. Next dialysis will be. Tomorrow. 2. Renal biopsy, awaiting results. 3. Electrolytes, acid-base balance, and anemia. These are stable. Continue to monitor. 4. Urinary tract infection, on appropriately dosed antibiotics. 5. Lymphoma, followed by Hematology. 6. Shock liver/ischemic hepatitis, followed by Primary and GI. ADDENDUM: Biopsy results indicate acute interstital nephritis. We have stopped any nephrotoxic medications and have initiated Pepcid 40 mg BID and Prednisone 60 mg daily. The patient will need to continue dialysis in the immediate future. We will arrange for a follow up in our office next week if she is discharged to discuss her continued plan for AIN. ANANYA Argueta Dictated by ANANYA Hoffman for Jasvir Monsalve MD cc: MD Zach Bergeron MD MTDD
[2018-10-10] MEDS: MELATONIN PO SCH (20:10)
[2018-10-10] MEDS: PEPCID PO SCH (20:10)
[2018-10-10] MEDS ORDERED: LOPRESSOR PO SCH (21:00)
[2018-10-11] MEDS: D5 NS 1,000 ML IV SCH ×2 (03:02→16:11)
[2018-10-11] MEDS: SYNTHROID PO SCH (06:36)
--- NOTE | 2018-10-11 07:16 | EKG Report ---
Test Performed on : 10/11/2018 07:08:02 AM Test Reason : rhythm change Blood Pressure : / mmHG Vent. Rate : 072 BPM Atrial Rate : 061 BPM P-R Int : 150 ms QRS Dur : 090 ms QT Int : 384 ms P-R-T Axes : 016 -07 014 degrees QTc Int : 420 ms Sinus rhythm. with frequent premature ventricular complexes. Otherwise normal ECG When compared with ECG of 10-OCT-2018 15:02, (Unconfirmed) premature ventricular complexes. are now present Vent. rate has decreased BY [address] no longer depressed in Anterolateral leads T wave inversion less evident in Inferior leads Nonspecific T wave abnormality no longer evident in Anterior leads Confirmed by Anirudh PHILLIPS, Mike Ellison ([id number]) on 10/11/2018 10:57:36 AM
[2018-10-11] MEDS: LOPRESSOR PO SCH ×3 (08:13→22:49)
[2018-10-11] MEDS: DITROPAN XL PO SCH ×2 (08:13→21:18)
[2018-10-11] MEDS: NORVASC PO SCH (08:13)
[2018-10-11] MEDS: MIRALAX PO SCH (08:13)
[2018-10-11] MEDS: PREDNISONE PO SCH (08:13)
[2018-10-11] MEDS: RESTASIS 0.05% OPH DROPS BOTH EYES SCH ×2 (08:13→21:18)
[2018-10-11] MEDS: PEPCID PO SCH ×2 (08:13→21:17)
[2018-10-11] MEDS: REQUIP PO SCH ×2 (08:13→21:17)
[2018-10-11] MEDS: G.I. COCKTAIL PO SCH ×3 (08:14→21:18)
[2018-10-11] MEDS ORDERED: HEPARIN IV PRN (09:25)
[2018-10-11] MEDS ORDERED: NS 2,000 ML MISC PRN (09:25)
[2018-10-11 09:40] LABS: ALBUMIN 2.9 g/dL (3.5-5.0); CALCIUM 8.1 mg/dL (8.8-10.2); CREATININE 3.8 mg/dL (0.5-0.9); PHOSPHORUS 3.9 mg/dL (2.7-4.5); POTASSIUM 5.8 mmol/L (3.5-5.1)
--- NOTE | 2018-10-11 10:14 | PROGRESS NOTE ---
DATE: 10/11/2018 SUBJECTIVE: Ms. Oakes does feel better. She still feels a little short of breath and dyspnea with any exertion. OBJECTIVE: She remains afebrile. Temperature is 97.4, pulse 78, respirations 24, blood pressure 146/66. Pupils are equal and round. Lungs are clear in all lung carmona. Cardiovascular: Regular rhythm and rate without murmur or S3. Abdomen is soft. Skin is warm and dry. Urine output is 3600 mL. DIAGNOSTIC DATA: Blood sugars were 208, 300, 337. ASSESSMENT AND PLAN: 1. Acute kidney injury. It appears the patient has acute interstitial nephritis. We will send off some studies. It is suspected it is drug related, but we will send off some studies including an IG4 level. The patient is on prednisone 60 mg daily. Renal function seems to be improving, although very slowly. Her urine output is 4600 mL. 2. Elevated liver functions. These have improved. AST is 35, ALT was 114. 3. Diabetes mellitus type 2. Sugars running a little high, probably secondary to prednisone. May need to increase the sliding scale. 4. Osteoarthritis. We are going to have to avoid anti-inflammatory. I suspect the medicine that was the culprit was the diclofenac she was taking. Her creatinine is down to 3.5. 5. We will continue physical therapy and aim to maybe get home on Sunday, today is Sunday. cc: Zach Smith MD
[2018-10-11] MEDS: OXY IR PO PRN ×2 (13:52→22:34)
[2018-10-11] MEDS: MELATONIN PO SCH (21:17)
[2018-10-12] MEDS: SYNTHROID PO SCH (06:07)
[2018-10-12] MEDS: LOPRESSOR PO SCH ×3 (06:08→16:48)
[2018-10-12 06:27] LABS: ALBUMIN 3.1 g/dL (3.5-5.0); CALCIUM 8.4 mg/dL (8.8-10.2); PHOSPHORUS 2.8 mg/dL (2.7-4.5); POTASSIUM 4.5 mmol/L (3.5-5.1)
[2018-10-12] MEDS: MIRALAX PO SCH (09:23)
[2018-10-12] MEDS: G.I. COCKTAIL PO SCH ×3 (09:23→21:40)
[2018-10-12] MEDS: PREDNISONE PO SCH (09:23)
[2018-10-12] MEDS: DITROPAN XL PO SCH ×2 (09:23→21:39)
[2018-10-12] MEDS: REQUIP PO SCH ×2 (09:23→21:39)
[2018-10-12] MEDS: RESTASIS 0.05% OPH DROPS BOTH EYES SCH ×2 (09:23→21:40)
[2018-10-12] MEDS: NORVASC PO SCH (09:23)
[2018-10-12] MEDS: PEPCID PO SCH ×2 (09:23→21:39)
--- NOTE | 2018-10-12 09:56 | PROGRESS NOTE ---
DATE: 10/12/2018 SUBJECTIVE: Ms. berger is feeling pretty good now, but at nighttime, she hurts quite a bit. Asked if we could increase her pain medicines at night. Breathing is comfortable. OBJECTIVE: Vital signs: Temperature is 97.9 degrees, pulse 65, respirations 18, blood pressure 157/65. HEENT: Pupils are equal and round. Lungs: Clear in all lung carmona. Cardiovascular Exam: Regular rhythm and rate without murmur or S3. Abdomen: Soft. Skin: Warm and dry. LABORATORY DATA: Urine output 1900 mL. Blood sugars 300, 297 and 247. ASSESSMENT AND PLAN: 1. Acute kidney injury consistent with acute interstitial nephritis. Biopsy done and consistent with interstitial nephritis. We sent off some studies, and she is on high-dose prednisone 60 mg a day, and liver function and kidney function improving. Urine output is improved. I am hoping she can get home first of the week Sunday or Sunday. She is very weak. 2. Elevated liver enzymes. These have come down as well as transaminases. 3. She presented with hypoglycemia, and this is resolved. We will stop her fluids and encourage p.o. intake. 4. Diabetes mellitus type 2. Sugars running a little higher because of the prednisone. 5. Osteoarthritis. We are trying to avoid diclofenac. I suspect this is the main culprit drug for interstitial nephritis for her. 6. Weakness and deconditioning. Continue physical therapy. Still has a Munoz catheter in. May take that out on Sunday or Sunday. She right now can only take a couple of steps. I have C4, C3, IgG pending, and I am going to increase her OxyIR so she can take it q.4 hours for nighttime. cc: Zach Smith MD
[2018-10-12] MEDS: OXY IR PO PRN (16:54)
[2018-10-12] MEDS: MELATONIN PO SCH (21:39)
[2018-10-13] MEDS: LOPRESSOR PO SCH ×3 (01:45→16:47)
[2018-10-13 05:55] LABS: CALCIUM 8.6 mg/dL (8.8-10.2); CREATININE 3.3 mg/dL (0.5-0.9); PHOSPHORUS 3.3 mg/dL (2.7-4.5); POTASSIUM 4.9 mmol/L (3.5-5.1)
[2018-10-13] MEDS: SYNTHROID PO SCH (06:11)
--- NOTE | 2018-10-13 07:47 | NEPHROLOGY PROGRESS NOTE ---
DATE: 10/12/2018 SUBJECTIVE: Patient resting in bed. She is stating that she is wanting to get up out of bed, but she needs assistance. OBJECTIVE: Vital Signs: Temperature 97.9 degrees, pulse 65, respiratory rate 18, blood pressure 157/65. Intake 835 mL, output 1.6 L. General: This is an elderly female, resting in bed. She is awake and alert. She appears in no acute distress. HEENT: Normocephalic, atraumatic. MILTON. Oral mucosa is moist. Neck: Supple. There is no JVD noted in a reclined position. Cardiovascular: Regular rate and rhythm. No murmur or gallop. Pulmonary: She is clear bilaterally. She has no increased work of breathing. Abdomen: Obese, soft, with positive bowel sounds. : Not inspected. Extremities: No clubbing, cyanosis. She does have 1+ to 2+ edema, worse pedal. Integumentary: Skin is pale, warm, and dry. LABORATORY DATA: Potassium 4.5, creatinine 3.0. ASSESSMENT AND PLAN: 1. 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 Continue the patient on prednisone. Continue to monitor. Her next dialysis will be on Sunday. Will draw labs in the morning to see if she has had any recovery since starting steroid therapy without dialysis over part of the weekend. I did discuss with the patient that it is quite possible that she may need dialysis for at least sometime in the future, but we will continue to monitor her closely and make those decisions as we have information from her labs. 2. Weakness and deconditioning. She already has physical therapy ordered by the primary. Will put an order in, up to the chair at least 3 times a day. 3. Osteoarthritis. We are acceptable with the current therapy that is being given to her for pain control. Again, avoid diclofenac or any nonsteroidal-type medications. Dictated by ANANYA Hoffman for Jasvir Monsalve MD cc: MD Zach Bergeron MD
[2018-10-13] MEDS: REQUIP PO SCH ×2 (08:28→21:00)
[2018-10-13] MEDS: MIRALAX PO SCH (08:28)
[2018-10-13] MEDS: NORVASC PO SCH (08:28)
[2018-10-13] MEDS: PREDNISONE PO SCH (08:28)
[2018-10-13] MEDS: G.I. COCKTAIL PO SCH ×3 (08:28→21:02)
[2018-10-13] MEDS: RESTASIS 0.05% OPH DROPS BOTH EYES SCH ×2 (08:28→21:02)
[2018-10-13] MEDS: PEPCID PO SCH ×2 (08:29→21:00)
[2018-10-13] MEDS: DITROPAN XL PO SCH ×2 (08:30→21:00)
--- NOTE | 2018-10-13 10:33 | PROGRESS NOTE ---
DATE: 10/13/2018 SUBJECTIVE: Ms. Oakes is sitting up in a recliner. She feels much better. She had a much better night last night. Breathing is comfortable. Feels like she still needs her oxygen. OBJECTIVE: Vital signs: Temperature 98.2 degrees, pulse 80, respirations 18, blood pressure 149/50. HEENT: Pupils are equal and round. Lungs: Clear in all lung carmona. Cardiovascular: Regular rhythm and rate without murmur or S3. Abdomen: Soft. Skin: Warm and dry. LABORATORY DATA: Urine output 2300 mL. Blood sugar 247, 298, 280, 285. ASSESSMENT AND PLAN: 1. Acute kidney injury, consistent with acute interstitial nephritis. Urine output is improved, and her creatinine is at 3.3 and overall has come down from her 4.8 that was her peak. She is on high-dose steroids. We have stopped the diclofenac. Trying to keep her on minimal medications. Some studies pending for IgG4 and for connective tissue and autoimmune processes, but suspect this is medication. 2. Elevated liver enzymes, which have come down. 3. History of hypoglycemia, which is resolved. 4. Diabetes mellitus type 2. Sugars are a little bit high, but she is on prednisone. 5. Osteoarthritis. 6. Deconditioning and weakness. We will check a chest x-ray in the morning. Check electrolytes and liver functions. She may need supplemental O2 to go home so we will see if we need to get that arranged. cc: Zach Smith MD
[2018-10-13] MEDS: OXY IR PO PRN ×2 (15:25→21:01)
--- NOTE | 2018-10-13 16:45 | NEPHROLOGY PROGRESS NOTE ---
DATE: 10/13/2018 SUBJECTIVE: Patient resting in bed. She states that she has been getting up to the chair with assistance. OBJECTIVE: Vital Signs: Temperature 98.2 degrees, pulse 60, respiratory rate 18, blood pressure 149/50, intake 400 mL, output 1.7 L. General: This is a elderly female resting in bed awake and alert, no acute distress. HEENT: Normocephalic, atraumatic. MILTON. Neck: Supple without JVD. Cardiovascular: Irregularly irregular rhythm, controlled rate. Pulmonary: Clear bilaterally. Abdomen: Soft, positive bowel sounds. : Not inspected. Extremities: No clubbing, cyanosis, trace edema. Integumentary: Skin is pale, warm, dry. LAB DATA: Sodium 139, potassium 4.9, CO2 26, creatinine 3.3 (3.0). ASSESSMENT AND PLAN: 1. 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 Her last dialysis was Sunday. Her creatinine after dialysis was 3.0. Today has risen only to 3.3. This is a much smaller increase in the creatinine without dialysis than previous. We will check her labs in the morning to evaluate her dialysis needs. Of note the patient does have scheduled dialysis as an outpatient for a Sunday, , Sunday schedule. If her labs tomorrow are acceptable and fluid volumes are adequate then we may go ahead and just hold dialysis and left her initiate her routine schedule on Sunday. Labs are ordered for in the a.m. 2. Acute interstitial nephritis. Continue on her current treatment plan with steroids. Continue to hold nephrotoxic medications. Dictated by ANANYA Hoffman for Jasvir Monsalve MD cc: MD Zach Bergeron MD
[2018-10-13] MEDS: MELATONIN PO SCH (21:01)
[2018-10-14] MEDS: OXY IR PO PRN ×3 (01:11→18:24)
[2018-10-14] MEDS: LOPRESSOR PO SCH ×3 (01:11→18:24)
[2018-10-14 06:02] LABS: ALBUMIN 3.2 g/dL (3.5-5.0); CALCIUM 8.4 mg/dL (8.8-10.2); CREATININE 3.5 mg/dL (0.5-0.9); PHOSPHORUS 3.6 mg/dL (2.7-4.5); POTASSIUM 4.8 mmol/L (3.5-5.1)
[2018-10-14] MEDS ORDERED: TIGHT: 0.2 ML/HR FOR DIALYSIS MISC PRN (06:28)
[2018-10-14] MEDS ORDERED: NS 2,000 ML MISC PRN (06:28)
[2018-10-14] MEDS ORDERED: HEPARIN IV PRN (06:28)
--- NOTE | 2018-10-14 07:20 | EKG Report ---
Test Performed on : 10/12/2018 1:35:15 PM Test Reason : poss. afib Blood Pressure : / mmHG Vent. Rate : 070 BPM Atrial Rate : 070 BPM P-R Int : 138 ms QRS Dur : 086 ms QT Int : 356 ms P-R-T Axes : 045 058 039 degrees QTc Int : 384 ms Normal sinus rhythm. with sinus arrhythmia. Possible Anterior infarct , age undetermined Abnormal ECG When compared with ECG of 11-OCT-2018 07:08, premature ventricular complexes. are no longer present Questionable change in QRS axis Confirmed by Anirudh PHILLIPS, Mike Ellison ([id number]) on 10/14/2018 9:28:08 AM
[2018-10-14] MEDS: SYNTHROID PO SCH ×2 (07:37→13:23)
--- NOTE | 2018-10-14 08:31 | PROGRESS NOTE ---
DATE: 10/14/2018 SUBJECTIVE: She had a pretty good night last night. She is weak, though she can stand and walk, and would like to go to rehab. OBJECTIVE: She remains afebrile. Temperature 97.6 degrees, pulse 58, respirations 20, blood pressure 190/64. Her blood pressures have ranged from 149-190/50-64. Pupils are equal. No distended neck veins. Lungs are clear anterior and posterior. Cardiovascular Examination: Regular rhythm and rate without murmur or S3. Abdomen is soft. Skin is warm and dry. Urine output is 4000 mL so excellent urine output. Blood sugar 280, 339, 321. ASSESSMENT AND PLAN: 1. 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 Last dialysis was on Sunday. Her creatinine is down to 3 and it has only risen back up to 3.3. I think she will get dialysis. I think she is scheduled to get it today. She would like to go to rehab. 2. Acute interstitial nephritis. Urine output has improved. Electrolytes look good. 3. Came in with hypoglycemia. 4. Anemia, which is stable. Hematocrit 30, hemoglobin 10. Electrolytes: Sodium 133, potassium 4.8, chloride is 97, BUN is 81, and creatinine 3.5. 5. Diabetes mellitus type 2. She is on high-dose prednisone for interstitial nephritis and sugar is still running a little high. 6. Hypothyroidism. She is on levothyroxine 150 mcg daily. 7. She does had some episodes of paroxysmal atrial fibrillation and some supraventricular tachycardia. I have her on Lopressor 25 mg every 8. 8. I believe she is on oxybutynin for hyperactive bladder. Blood pressure is still running a little bit high. I think I will go up on her amlodipine to 5 mg twice a day. We will stop her Pepcid. cc: Zach Smith MD
[2018-10-14] MEDS: NORVASC PO SCH ×2 (08:48→20:51)
[2018-10-14] MEDS: REQUIP PO SCH ×2 (08:48→20:51)
[2018-10-14] MEDS: PREDNISONE PO SCH (13:30)
[2018-10-14] MEDS: MIRALAX PO SCH (13:30)
[2018-10-14] MEDS: DITROPAN XL PO SCH ×2 (13:31→20:51)
[2018-10-14] MEDS: RESTASIS 0.05% OPH DROPS BOTH EYES SCH ×2 (13:31→20:51)
[2018-10-14] MEDS: G.I. COCKTAIL PO SCH ×3 (15:34→20:51)
--- NOTE | 2018-10-14 16:51 | NEPHROLOGY PROGRESS NOTE ---
DATE: 10/14/2018 SUBJECTIVE: She is currently on dialysis. She states she has really not been up over the weekend. She does have some shortness of breath. OBJECTIVE: Vital Signs: Blood pressure 190/64, heart rate 58, respirations 20, afebrile. Intake 800 mL. Output 2.3 L. General: No acute distress. Skin: Warm and dry. Neck: Neck veins are not appreciated. Heart: Regular. Lungs: Equal, shallow, a few scattered crackles. Abdomen: Soft, nontender. Bowel sounds present. Extremities: With 2+ edema. No clubbing or cyanosis. IMPRESSION: Acute kidney injury. Acute interstitial nephritis. Her urine volume is excellent. She does still have some volume overload on exam. She had dialysis today. Observe over the next 48 hours. If she is otherwise ready for discharge, then we can make outpatient arrangements if required. cc: MD Zach Bergeron MD
[2018-10-14] MEDS: MELATONIN PO SCH (20:51)
[2018-10-15] MEDS: LOPRESSOR PO SCH ×4 (00:44→17:48)
[2018-10-15] MEDS: OXY IR PO PRN ×3 (00:44→20:48)
[2018-10-15] MEDS: SYNTHROID PO SCH ×2 (05:39→06:05)
[2018-10-15 05:45] LABS: ALBUMIN 3.1 g/dL (3.5-5.0); CALCIUM 7.7 mg/dL (8.8-10.2); CREATININE 2.6 mg/dL (0.5-0.9); PHOSPHORUS 3.5 mg/dL (2.7-4.5); POTASSIUM 4.7 mmol/L (3.5-5.1)
[2018-10-15] MEDS: RESTASIS 0.05% OPH DROPS BOTH EYES SCH ×2 (08:08→20:45)
[2018-10-15] MEDS: NORVASC PO SCH ×2 (08:08→20:45)
[2018-10-15] MEDS: DITROPAN XL PO SCH ×2 (08:08→20:45)
[2018-10-15] MEDS: MIRALAX PO SCH (08:08)
[2018-10-15] MEDS: REQUIP PO SCH ×2 (08:08→20:45)
[2018-10-15] MEDS: PREDNISONE PO SCH (08:08)
[2018-10-15] MEDS ORDERED: HEPARIN IV PRN (08:17)
[2018-10-15] MEDS ORDERED: NS 2,000 ML MISC PRN (08:17)
[2018-10-15] MEDS ORDERED: TIGHT: 0.2 ML/HR FOR DIALYSIS MISC PRN (08:17)
--- NOTE | 2018-10-15 08:27 | PROGRESS NOTE ---
DATE: 10/15/2018 SUBJECTIVE: Ms. Oakes is feeling better. She still not able to stand and walk, very weak. OBJECTIVE: Vitals: Temperature 98.1 degrees, pulse 60, respirations 18, blood pressure 184/55. Eyes: Pupils are equal. Neck: No distended neck veins. Lungs: Clear in all lung carmona. Cardiovascular: Regular rhythm and rate without murmur or S3. Abdomen: Soft. Skin: Warm and dry. Extremities: She does have trace edema of ankles to the mid mendez. URINE OUTPUT: Yesterday with dialysis was close to 3 L. LABORATORY: Blood sugars 321, 228, 351. I put her on a sliding scale. Sugars still running high because of the prednisone. ASSESSMENT AND PLAN: 1. Acute kidney injury, acute interstitial nephritis. Urine volume is excellent. She still has some volume overload. So going to get dialysis again today. She would like to go to rehab. 2. Diabetes mellitus type 2. Sugars elevated because of prednisone 60 mg a day for interstitial nephritis. 3. General weakness and deconditioning. We will continue physical therapy and looking for rehab opportunities. 4. Anemia. Hematocrit and hemoglobin are stable. 5. History of hypothyroidism. Appears to be euthyroid. She is on levothyroxine 150 mcg daily. 6. History of paroxysmal atrial fibrillation. She is getting Lopressor 25 mg q.8. Her rate is controlled. 7. She is on oxybutynin. I think that is for hyperactive bladder and bladder spasms. We have tried to keep her off most of her medications. I did go up on her amlodipine yesterday because of blood pressure. Blood pressure still running systolic above 160. I may add Apresoline to her regimen, although I am trying to avoid any additional medications. We will keep the Munoz catheter in today. cc: Zach Smith MD
[2018-10-15] MEDS: G.I. COCKTAIL PO SCH ×3 (09:00→20:45)
[2018-10-15] MEDS: HUMALOG SUBQ SCH ×4 (12:27→20:45)
--- NOTE | 2018-10-15 14:17 | NEPHROLOGY PROGRESS NOTE ---
DATE: 10/15/2018 SUBJECTIVE: She is sitting up on the side of the bed today. She states she feels better. Minimal shortness of breath. OBJECTIVE: Vital Signs: Blood pressure 184/55, heart rate 61, respiration 18, afebrile. General: No acute distress. Skin: Warm and dry. Neck: Neck veins are not appreciated. Heart: Regular. Lungs: Equal. No crackles. Abdomen: Soft, nontender. Bowel sounds present. Extremities: There is 2+ to 3+ edema. No clubbing or cyanosis. IMPRESSION: Acute kidney injury secondary to acute interstitial nephritis. Her medication list has been minimized, and she is on prednisone 60 mg a day. She does not have evidence of Sjogren's syndrome. We will continue her prednisone for now. Dialysis again today because of volume overload. No other changes. cc: MD Zach Bergeron MD
[2018-10-15] MEDS: MELATONIN PO SCH (20:45)
[2018-10-16] MEDS: LOPRESSOR PO SCH ×3 (02:11→17:01)
[2018-10-16] MEDS: OXY IR PO PRN ×2 (05:07→20:30)
[2018-10-16] MEDS: SYNTHROID PO SCH ×2 (05:07→06:35)
[2018-10-16] MEDS ORDERED: NS 2,000 ML MISC PRN (06:14)
[2018-10-16] MEDS ORDERED: HEPARIN IV PRN (06:14)
[2018-10-16] MEDS ORDERED: TIGHT: 0.2 ML/HR FOR DIALYSIS MISC PRN (06:14)
[2018-10-16] MEDS: HUMALOG SUBQ SCH ×4 (06:44→20:31)
[2018-10-16] MEDS: REQUIP PO SCH ×2 (08:55→20:31)
[2018-10-16] MEDS: PREDNISONE PO SCH (08:55)
[2018-10-16] MEDS: G.I. COCKTAIL PO SCH ×3 (08:55→20:32)
[2018-10-16] MEDS: RESTASIS 0.05% OPH DROPS BOTH EYES SCH ×2 (08:55→20:30)
[2018-10-16] MEDS: NORVASC PO SCH ×2 (08:55→20:30)
[2018-10-16] MEDS: DITROPAN XL PO SCH ×2 (08:55→20:31)
[2018-10-16] MEDS: MIRALAX PO SCH (08:55)
--- NOTE | 2018-10-16 09:04 | PROGRESS NOTE ---
DATE: 10/16/2018 SUBJECTIVE: She does feel better. She was able to walk around, walk in the halls, so I think she would like to try and go home. She is encouraged by how she can get around with the decreased fluid retention. Her kidneys are definitely better. She is eating better. OBJECTIVE: Vitals: She remains afebrile, temperature 98, pulse 88, respirations 18, blood pressure 151/59. Eyes: Pupils are equal and round. Lungs: Clear in all lung carmona. Cardiovascular: Regular rhythm and rate without murmur or S3. Abdomen: Soft. Skin: Warm and dry. URINE OUTPUT: 8300 mL. So excellent urine output. LABORATORY: Blood sugar 315, 312, 131. ASSESSMENT AND PLAN: 1. 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 Suspect it was probably the diclofenac. She is on prednisone 60 mg a day and probably can taper that down fairly quickly per Dr. Monsalve. She does not have evidence of showed Sjogren syndrome or connective tissue disease. I think that she should be ready to go home tomorrow. 2. Still requiring some oxygen. She is eligible so we will see if we can get that set up for her to go home tomorrow. 3. Weakness and deconditioning. This is improving. Continue physical therapy. Would benefit from home health. 4. Hematocrit, hemoglobin stable. 5. Hypothyroidism. Appears euthyroid. 6. History of paroxysmal atrial fibrillation. Right now she is getting her Lopressor 25 mg q.8 upright. Continue that at home. 7. She is on Oxybutynin and I think that is for hyperactive bladder, so we will see if we can get things set up to go home in the morning. Note her creatinine is down to 2.6. I think her blood sugars will come down as we taper down on the prednisone. She did have a sugar of 131 today. cc: Zach Smith MD
[2018-10-16 10:26] LABS: ALBUMIN 3.5 g/dL (3.5-5.0); CALCIUM 8.5 mg/dL (8.8-10.2); CREATININE 2.5 mg/dL (0.5-0.9); PHOSPHORUS 2.8 mg/dL (2.7-4.5)
--- NOTE | 2018-10-16 11:45 | NEPHROLOGY PROGRESS NOTE ---
DATE: 10/16/2018 ADDENDUM: OBJECTIVE: Vital Signs: Blood pressure 151/59, heart rate 88, respirations 18. General: No acute distress. Skin: Warm and dry. HEENT: Conjunctivae are pink. Neck: Neck veins are not appreciated. Heart: Regular. No gallops. Lungs: Equal. No crackles. Abdomen: Soft, nontender. Bowel sounds are present. Extremities: With 1+ edema. No clubbing or cyanosis. IMPRESSION: Acute interstitial nephritis. Her labs are going to be affected by her dialysis from yesterday, but her urine output is improved and her clinical status is improved. We will hold dialysis today. Recheck her labs this morning. Continue prednisone 60 mg today, but will decrease to 40 mg tomorrow. cc: MD Zach Bergeron MD
--- NOTE | 2018-10-16 12:59 | NEPHROLOGY PROGRESS NOTE ---
DATE: 10/16/2018 SUBJECTIVE: She is feeling much better today. She has been able to ambulate in the hallways. She is sitting up at the time of my exam. No shortness of breath. OBJECTIVE: Vital Signs: Blood pressure 151/59, heart INCOMPLETE REPORT/DICTATION STOPS cc: MD Zach Bergeron MD
[2018-10-16] MEDS: MELATONIN PO SCH (20:30)
[2018-10-17] MEDS: LOPRESSOR PO SCH ×3 (01:09→08:42)
[2018-10-17 05:41] LABS: HEMATOCRIT 26.8 % (37.0-47.0); HEMOGLOBIN 8.6 g/dL (12.0-16.0); MCH 30.7 PG (27-31); MCHC 32.1 g/dL (33-37); MCV 95.7 FL (81-99); MPV 10.1 FL (7.4-10.4); RBC 2.8 XMIL (4.2-5.4); RDW 13.7 % (11.5-14.5); WBC 10.68 X1000 (4.8-10.8)
[2018-10-17] MEDS: SYNTHROID PO SCH ×2 (05:41→06:08)
[2018-10-17] MEDS: HUMALOG SUBQ SCH ×3 (05:41→11:35)
[2018-10-17 06:05] LABS: ALBUMIN 2.9 g/dL (3.5-5.0); CREATININE 2.4 mg/dL (0.5-0.9); PHOSPHORUS 3.5 mg/dL (2.7-4.5); POTASSIUM 4.4 mmol/L (3.5-5.1)
[2018-10-17] MEDS: RESTASIS 0.05% OPH DROPS BOTH EYES SCH (08:16)
[2018-10-17] MEDS: REQUIP PO SCH (08:16)
[2018-10-17] MEDS: NORVASC PO SCH (08:16)
[2018-10-17] MEDS: DITROPAN XL PO SCH (08:16)
[2018-10-17] MEDS: G.I. COCKTAIL PO SCH (08:16)
[2018-10-17] MEDS: MIRALAX PO SCH (08:19)
[2018-10-17] MEDS ORDERED: PREDNISONE PO SCH (09:00)
--- NOTE | 2018-10-17 09:08 | DISCHARGE SUMMARY ---
ADMISSION DATE: 10/01/2018 DISCHARGE DATE: 10/17/2018 HISTORY: This is a patient of mine 78-year-old presented on 10/01/2018. said it was a hard time getting her to wake up and very nauseated. She had not eaten much. She arrived in the emergency room. Sugar was in the 40s. Also, it was noted that her renal function had deteriorated. Creatinine was 4. She denied any chest pain, fever or chills. In general, she did not feel good, and her main concern was nausea and weakness, and had not eaten or drank much liquids. Not sure about what medication she took, but denies any change. Not sure if she missed some medicines on the last couple of days. I had not noted any abdominal pain, or real change in her bowels other than constipation. No gross hematuria or dysuria. No pleuritic pain or cough. PAST MEDICAL HISTORY: 1. Hypertension. 2. Diabetes mellitus type 2. 3. Gout. 4. Osteoarthritis. 5. Hypothyroidism. 6. Inguinal left node biopsy was done in July of this year. She has a history of lymphoma with recurrence, and has been treated. PAST SURGICAL HISTORY: 1. Status post appendectomy. 2. Cholecystectomy. 3. Left breast biopsy in the past. HOSPITAL COURSE: 1. She was admitted with hypoglycemia. We felt that that was secondary to her oral hypoglycemics and not eating. 2. Acute kidney injury concerned about acute tubular necrosis. 3. Elevated liver enzymes. We are not sure, but suspect that that might have been hypoxic injury to the liver. 4. History of lymphoma with recurrence. I do not see evidence of recurrent lymphoma at this time. 5. History of gouty arthritis. 6. History of peripheral neuropathy. 7. History of hypercholesterolemia. 8. Osteoarthritis. 9. Dry eyes for which she takes Restasis eyedrops. Blood sugar was difficult to bring up. We gave her several amps of D50. We put her on some D5 fluids, and felt that she had an element of prerenal injury, but liver enzymes slowly seemed to come down. We did an abdominal and pelvic CT on 10/02, and it was really unrevealing. No sign of renal obstruction, abscess or free air. We did an echocardiogram on 10/01/2018. Left ventricular size and function looked good. Ejection fraction 65%. Did not see significant valvular dysfunction. She had moderate aortic stenosis with a gradient of 51 mmHg, mean gradient of 30 mmHg. She continued to feel poor. I consulted Nephrology thinking it was possible acute tubular necrosis. She did have sediment in her urine, and the renal function just really did not seem to improve so a renal biopsy was done. It revealed acute interstitial nephritis. I asked Dr. Ginna Maloney who followed her for lymphoma to evaluate. She did not feel like there is any recurrence. 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 No evidence of large B-cell lymphoma on most recent scans done on 08/14/2018. 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 She was put on high-dose steroids once we found she had acute interstitial nephritis. I suspect the culprit drug was the diclofenac she was taking at home. We did ask gastroenterology to see. Because of the elevated liver function test, he felt it was probably related to ischemic injury to the liver. The patient was given some dialysis, and she showed improvement with diminished volume. Her creatinine was coming down, and she showed good progress. Urine output increased. Renal function improved. Originally, we were thinking about going to rehab, but she made good progress with physical therapy and wanted to go home with home health so we will set her up to go home on 10/17/2018. DISCHARGE MEDICATIONS: She will be on Norvasc 5 mg b.i.d., Restasis eyedrops 0.05% 1 drop to each eye twice a day, Synthroid 150 mcg daily, melatonin 10 mg at bedtime, Lopressor 25 mg q.8 hours, Ditropan XL 5 mg b.i.d., Oxy IR 5 mg q.4 she was given for pain, and did not need that much, but she did complain of pain in her back and her joints. MiraLAX 17 g daily and prednisone was reduced down to 20 mg daily. She is on Requip 1 mg p.o. b.i.d. for restless legs syndrome. She was eligible for O2 so she will go home on 2 L of O2 per nasal cannula. DISPOSITION: Follow up with Dr. Monsalve in a couple of weeks. I will follow up with her in about 4 weeks as well. We will arrange for home health to come out. Continue physical therapy. cc: Zach Smith MD MTDD
[2018-10-17 10:46] VITALS: BP 149/57
[2018-10-17] MEDS ORDERED: PNEUMOVAX 23 IM ONE (13:17)
--- NOTE | 2018-10-17 20:41 | NEPHROLOGY PROGRESS NOTE ---
DATE: 10/17/2018 SUBJECTIVE: She is sitting up on the side of the bed. She states she feels well. Anticipating discharge today to home. OBJECTIVE: Blood pressure 149/57, heart rate 60, respirations 16. Afebrile. Generally, no acute distress. Skin is warm and dry. Heart is regular. No gallops. Lungs are equal. No crackles. Abdomen is soft, nontender. Bowel sounds present. Extremities with 2+ edema. No clubbing or cyanosis. IMPRESSION AND PLAN: Acute kidney injury secondary to interstitial nephritis, likely caused by nonsteroidal anti-inflammatory drug (diclofenac). Her creatinine is stable over the last 24 hours. We will withhold dialysis. Check labs next Sunday and weigh daily. We will follow her closely in the office and get her dialysis catheter removed, as soon as it is clear she is done with dialysis. cc: MD Zach Bergeron MD
== END 2018-10-17 14:20 | disposition home health service (06) | DRG 673 ==
LOC: ED 09:27 → 3N 13:37 → 3S 10-03 13:05
PROVIDERS: ADMIT Emergency Medicine; ATTEND Emergency Medicine
CPT/HCPCS: 50200; 71010; 71020; 71045; 71046; 74176; 76700; 77001; 80048; 80053; 80069; 80074; 80076; 80307; 80324; 80329; 81001; 82003; 82150; 82570; 82805; 82948; 83516; 83690; 83735; 84100; 84132; 84155; 84156; 84165; 84300; 84436; 84443; 84484; 85018; 85025; 85027; 85610; 85651; 85730; 86038; 86039; 86160; 86235; 86255; 87040; 87077; 87088; 87186; 88300; 90732; 93005; 93010; 93306; 94640; 94760; 94761; 96374; 97110; 97116; 97162; 97167; 97530; 99284; A9270; C1750; G0480; G6039; J1644; J1815; J1956; J2250; J2405; J7030; J7042; J7050; J7506; J7512; XXXXX